=== PATIENT | male | born 1975 | race Caucasian/White ===

== ENCOUNTER → 2020-06-08 09:55 | Outpatient (BNVA) | payer OTHER, SELFPAY | PROVIDERS: PCP Internal Medicine; Referring Provider Internal Medicine; Visit Provider Family Medicine Adult Medicine | DX: M96.1 Postlaminectomy syndrome, not elsewhere classified (principal); M54.16 Radiculopathy, lumbar region; M17.31 Unilateral post-traumatic osteoarthritis, right knee; T14.90XS Injury, unspecified, sequela; Z79.891 Long term (current) use of opiate analgesic | CPT/HCPCS: 99214 ==

== ENCOUNTER → 2020-07-11 10:18 | Outpatient (BNVA) | payer OTHER, SELFPAY | PROVIDERS: PCP Internal Medicine; Visit Provider Family Medicine Adult Medicine | DX: M96.1 Postlaminectomy syndrome, not elsewhere classified (principal); M17.31 Unilateral post-traumatic osteoarthritis, right knee; T14.90XS Injury, unspecified, sequela; X58.XXXS Exposure to other specified factors, sequela; Z79.891 Long term (current) use of opiate analgesic | CPT/HCPCS: 99212 ==

== ENCOUNTER → 2020-08-08 09:45 | Outpatient (BNVA) | payer OTHER, SELFPAY | PROVIDERS: PCP Internal Medicine; Visit Provider Family Medicine Adult Medicine | DX: M96.1 Postlaminectomy syndrome, not elsewhere classified (principal); M17.31 Unilateral post-traumatic osteoarthritis, right knee | CPT/HCPCS: 99212 ==

== ENCOUNTER → 2020-09-07 08:39 | Outpatient (BNVA) | payer OTHER, SELFPAY | PROVIDERS: PCP Internal Medicine; Referring Provider Internal Medicine; Visit Provider Family Medicine Adult Medicine | DX: M96.1 Postlaminectomy syndrome, not elsewhere classified (principal); M17.31 Unilateral post-traumatic osteoarthritis, right knee | CPT/HCPCS: 99212 ==

== ENCOUNTER → 2020-10-06 09:09 | Outpatient (BNVA) | payer OTHER, SELFPAY | PROVIDERS: PCP Internal Medicine; Visit Provider Nurse Practitioner Family | DX: M96.1 Postlaminectomy syndrome, not elsewhere classified (principal); M17.31 Unilateral post-traumatic osteoarthritis, right knee; T14.90XS Injury, unspecified, sequela; M54.16 Radiculopathy, lumbar region; Z79.891 Long term (current) use of opiate analgesic | CPT/HCPCS: 99212 ==

== ENCOUNTER → 2020-11-03 11:08 | Outpatient (BNVA) | payer OTHER, SELFPAY | PROVIDERS: PCP Internal Medicine; Visit Provider Nurse Practitioner Family | DX: M96.1 Postlaminectomy syndrome, not elsewhere classified (principal); M17.31 Unilateral post-traumatic osteoarthritis, right knee; M54.16 Radiculopathy, lumbar region ==

== ENCOUNTER → 2021-02-01 15:51 | Outpatient (BNVA) | payer OTHER, SELFPAY | PROVIDERS: PCP Internal Medicine; Visit Provider Anesthesiology | DX: M96.1 Postlaminectomy syndrome, not elsewhere classified (principal); M17.31 Unilateral post-traumatic osteoarthritis, right knee; M54.16 Radiculopathy, lumbar region; Z88.8 Allergy status to other drugs, medicaments and biological substances; Z79.891 Long term (current) use of opiate analgesic; Z79.899 Other long term (current) drug therapy | CPT/HCPCS: 99212 ==

== ENCOUNTER 2021-03-13 08:17 | Outpatient (REF) | payer OTHER, SELFPAY ==
[2021-03-13 09:02] LABS: MANUAL DIFF FLAG NO
[2021-03-13 09:04] LABS: Basophils Percent Auto 0.4 % (0-2); Eosinophils Absolute Auto 0.2 X10*3/uL (0.0-0.4); Eosinophils Percent Auto 2.5 % (0-4); Hematocrit 44.9 % (42-52); Hemoglobin 15.2 g/dl (14.0-18.0); Imm Gran Abs Auto 0.04 X10*3/uL (0.00-0.03); Imm Gran Pct Auto 0.5 % (0.0-0.4); Lymphocytes Absolute Auto 2.5 X10*3/uL (1.2-4.9); Lymphocytes Percent Auto 34.1 % (20-40); Mean Corpuscular HGB Conc 33.9 g/dl (31.0-36.0); Mean Corpuscular Hemoglobin 31.3 pg (27.0-33.0); Mean Corpuscular Volume 92.6 fL (80-98); Mean Platelet Volume 8.9 fL (9.4-12.4); Monocytes Absolute Auto 0.6 X10*3/uL (0.1-1.2); Neutrophils Percent Auto 54.5 % (45-73); Platelet Count 272 X10*3/uL (160-400); Red Blood Count 4.85 X10*6/uL (4.60-5.80); Red Cell Distribution Width 12.2 % (11.0-16.0); White Blood Count 7.3 X10*3/uL (4.8-10.8)
[2021-03-13 09:27] LABS: Alanine Aminotransferase 33 U/L (0-40); Albumin Level 4.4 g/dL (3.5-5.0); Alkaline Phosphatase 97 U/L (39-117); Anion Gap 13 (12-20); Aspartate Amino Transferase 26 U/L (5-37); Bilirubin Total 0.4 mg/dL (0.0-1.0); Blood Urea Nitrogen 10 mg/dL (9-16); Calcium 9.3 mg/dL (8.4-10.2); Carbon Dioxide 27 mmol/L (22-29); Chloride 105 mmol/L (96-108); Cholesterol 225 mg/dL; Estimated Glomerular Filt Rate > 60; Glucose Random 104 mg/dL (60-115); HDL Cholesterol 44 mg/dL; LDL Cholesterol Calculated 148 mg/dl; Potassium 4.7 mmol/L (3.3-5.1); Sodium 140 mmol/L (135-145); Total Protein 7.1 g/dL (6.5-8.0); Triglycerides 167 mg/dL
[2021-03-13 09:51] LABS: Free T4 (Free Thyroxine) 0.97 ng/dL (0.71-1.85); Thyroid Stimulating Hormone 0.85 uIU/mL (0.32-4.0)
[2021-03-13 10:02] LABS: Folate 10.9 ng/mL (> or = 4.0); Vitamin B12 397 pg/mL (200-900)
== END 2021-03-13 08:18 | disposition home or self-care (01) ==
LOC: HO.LAB 08:17
PROVIDERS: PCP Internal Medicine; Visit Provider Internal Medicine
DX: E78.00 Pure hypercholesterolemia, unspecified (principal)
CPT/HCPCS: 36415; 80053; 80061; 82607; 82746; 84439; 84443; 85025

== ENCOUNTER → 2021-05-02 13:15 | Outpatient (BNVA) | payer OTHER, SELFPAY | PROVIDERS: PCP Internal Medicine; Visit Provider Anesthesiology | DX: M96.1 Postlaminectomy syndrome, not elsewhere classified (principal); M17.31 Unilateral post-traumatic osteoarthritis, right knee; M54.16 Radiculopathy, lumbar region; Z79.899 Other long term (current) drug therapy | CPT/HCPCS: 99212 ==

== ENCOUNTER 2021-08-10 12:03 | Day surgery (SDC) | payer OTHER, SELFPAY ==
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
--- NOTE | ~2021-08-10 | FL_ITS ---
EXAMINATION: XR FLUOROSCOPY WITH IMAGES CLINICAL INFORMATION: Genicular nerve block COMPARISON: Right knee 11/23/2018. TECHNIQUE: Fluoroscopy performed by Dr. Kendall Pacheco. Fluoroscopy time: 0.3 minutes DAP: 1.51 mGycm2 Images: 2 FINDINGS: There are needles positioned along the medial and lateral distal femur and along the medial tibia for genicular nerve block. There is hyperdense material from packing in the distal femur from previous intervention. FL/FL guidance in OR IMPRESSION: [place] positioned around the knee joint for genicular nerve block. There is hyperdense packing material seen within distal femur from previous intervention, unchanged to previous study 06/13/2017.
--- NOTE | 2021-08-10 11:34 | W.PM.OPN ---
Operative Note Operative Note Date of Service: 08/10/21 Narrative: Devin came to the OR after obtaining informed consent. Risks and benefits of the procedure were explained to the patient, all questions were answered He was positioned supine on the OR table with his righ leg elevated on the gell bin. Time was performed - the patient was participating in time out. the anterior surface as well as lateral and medial surface of the knee, lower thigh and upper sheen were prepped with chloroprep and draped with sterile utility drapes. ? C-arm was brought over the operating field and square picture of the femur and tibia bones were delineated on the screen. The points of interests were delineated as the connection of medial border of metaphysis of the tibia with corresponding epiphysis of the medial tibia for the infrapatellar saphenous nerve, the connection of the medial border of metaphisis with medial border of epiphysis of the of the medial border of femur bone for suprapatellar saphenous nerve and the connection of the lateral border of the metaphisis with lateral border of epiphysis of the femur bone for the lateral superior genicular nerve. The projection of the points of interest to the skin were? injected with small amount of lidocain 2%. After that three 50 mm radiofrequency cannulas were driven to the points of interest in AP and lateral views. When the needle on the AP view were at the borders of the bone and on the lateral view they were positioned in the projection of midshafts of the bones the stylletes were remove and radiofrequency probes were inserted into the canullas. The position of the cannulas was verified and injection of the local anesthetic mixture of bupivacain 0.5% and lidocain 2% with trace amount of kenalog was performed into each side port of the canullas. 90 second after energy application was performed at standard settings for the cooled RFA treatment for 2min 45 seconds. Upon completion of the energy application the cannulas were removed and bandaids were applied. The patient tolerated procedure well, he was recovering in PACU, and went home without immediate complications.
[2021-08-10 12:19] VITALS: BMI 23.6
[2021-08-10 12:23] VITALS: BP 156/92; PULSE 84; RESP 16; TEMP 36.9; O2SAT 97
[2021-08-10] MEDS: Lactated Ringers 1,000 ML 100 ML IVCONT (12:33)
--- NOTE | 2021-08-10 14:12 | P.HPSUR_ITS ---
Pre-Procedural Eval Section A Date of Service: 08/10/21 The patient is an INPATIENT: No Changes since office visit: Yes Patient answered all questions The History & Physical has been completed within 30 days and I have reviewed it.: No Section B Chief Complaint: Post-traumatic osteoarthritis of Right knee Details of Present Illness: the same Relevant Family History (Specify if Yes): No Relevant Social History: None Present Medications: see Short Stay Collaborative assessment Medical History: No relevant PMH History of Previous Operations: Relevant previous surgery/procedure and date(s) Allergies: Allergies Allergy/AdvReac Type Severity Reaction Status Date / Time acetaminophen [ACETAMINOPHEN] Allergy Severe HIVES Verified 05/02/21 13:35 hydrocodone [From Vicodin] Allergy Intermediate hives Verified 05/02/21 13:35 gabapentin Allergy Unknown rectal Verified 05/02/21 13:35 bleeding, upset stomach meloxicam Allergy Unknown rectal Verified 05/02/21 13:35 bleed omeprazole Allergy Unknown stomach Verified 05/02/21 13:35 upset Review of Systems Sugical H&P ROS: Negative: Constitution, Cardiovascular, Respiratory, Neuro logical, Psychiatric, Hem-Onc, Allergic/Immunologic, Gastrointestinal, Genitourinary, Musculoskeletal, Integumentary, Endocrine and Eyes/Ears/Nose/Throat Exam Surgical H&P Exam: Normal: HEENT, Normal: Heart, Normal: Lungs, Normal: Extremities, Normal: Abdomen, Normal: Skin and Normal: Neurological Plan Diagnosis/Plan: Unchanged I have reviewed the history and physical and performed a pertinent physical examination on my patient. No changes have occurred unless specified.
--- NOTE | 2021-08-10 14:56 | P.BOP_ITS ---
Brief Operative Note Date of Service: 08/10/21 Pre-op diagnosis: post traumatic osteoarthritis right knee Post-op diagnosis: same Procedure: RFA right knee genicular nerves Surgeon: Kendall Pacheco MD Anesthesia: MAC Was an Neuropsychology Division Chief used for this Procedure?: No Estimated blood loss (mL): 3 Pathology: none sent Condition: stable Disposition: PACU
[2021-08-10 15:03] VITALS: BP 137/96; PULSE 100; RESP 12; TEMP 36.8; O2SAT 98
[2021-08-10 15:18] VITALS: BP 156/103; PULSE 97; RESP 14; O2SAT 100
[2021-08-10 15:33] VITALS: BP 165/93; PULSE 82; RESP 16; O2SAT 100
[2021-08-10 15:48] VITALS: BP 156/90; PULSE 87; RESP 16; TEMP 36.9; O2SAT 100
== END 2021-08-10 16:00 | disposition home or self-care (01) ==
PROVIDERS: PCP Internal Medicine; Visit Provider Anesthesiology
PROC: (CPT 64624; principal; 2021-08-10 14:10)
DX: M17.31 Unilateral post-traumatic osteoarthritis, right knee (principal); G89.29 Other chronic pain; M25.561 Pain in right knee; Z87.828 Personal history of other (healed) physical injury and trauma; Z18.10 Retained metal fragments, unspecified; M96.1 Postlaminectomy syndrome, not elsewhere classified; M54.50 Low back pain, unspecified; M54.16 Radiculopathy, lumbar region; M51.36 Other intervertebral disc degeneration, lumbar region; E55.9 Vitamin D deficiency, unspecified; F17.210 Nicotine dependence, cigarettes, uncomplicated
CPT/HCPCS: 64624; J1100; J2250; J3010; J3300

== ENCOUNTER → 2021-09-12 13:59 | Outpatient (BNVA) | payer OTHER, SELFPAY | PROVIDERS: PCP Internal Medicine; Visit Provider Anesthesiology | DX: M96.1 Postlaminectomy syndrome, not elsewhere classified (principal); M54.16 Radiculopathy, lumbar region; M17.31 Unilateral post-traumatic osteoarthritis, right knee; M19.92 Post-traumatic osteoarthritis, unspecified site; T14.90XS Injury, unspecified, sequela | CPT/HCPCS: Q3014 ==

== ENCOUNTER 2022-05-17 07:54 | Outpatient (REF) | payer OTHER, SELFPAY ==
--- NOTE | 2022-05-17 11:49 | PFT_ITS ---
Forced vital capacity 82%, FEV1 83%. FEV1/FVC ratio is 81. [id number] 79%. MVV 92%. Post bronchodilator therapy, there is no change. Total lung capacity 84%. Residual volume 93%. Diffusion capacity 103% CONCLUSION: Normal pulmonary function test, and there is no evidence of obstructive or restrictive pulmonary disorder. MD LIBIA Chapin/KADENL / [id number]
== END 2022-05-17 07:55 | disposition home or self-care (01) ==
LOC: HO.RESP 07:54
PROVIDERS: PCP Internal Medicine; Visit Provider Internal Medicine
DX: R06.02 Shortness of breath (principal)
CPT/HCPCS: 94060; 94727; 94729

== ENCOUNTER 2022-05-20 07:55 | Outpatient (REF) | payer OTHER, SELFPAY ==
[2022-05-20 11:17] LABS: MANUAL DIFF FLAG NO
[2022-05-20 11:38] LABS: Basophils Percent Auto 0.6 % (0-2); Eosinophils Absolute Auto 0.2 X10*3/uL (0.0-0.4); Eosinophils Percent Auto 2.2 % (0-4); Hemoglobin 15.6 g/dl (14.0-18.0); Imm Gran Abs Auto 0.04 X10*3/uL (0.00-0.03); Imm Gran Pct Auto 0.6 % (0.0-0.4); Lymphocytes Absolute Auto 2.3 X10*3/uL (1.2-4.9); Lymphocytes Percent Auto 34.4 % (20-40); Mean Corpuscular HGB Conc 33.2 g/dl (31.0-36.0); Mean Corpuscular Hemoglobin 31.2 pg (27.0-33.0); Mean Platelet Volume 9.3 fL (9.4-12.4); Monocytes Absolute Auto 0.5 X10*3/uL (0.1-1.2); Neutrophils Absolute Auto 3.7 x10*3/uL (2.0-8.3); Neutrophils Percent Auto 55.2 % (45-73); Platelet Count 291 X10*3/uL (160-400); Red Cell Distribution Width 12.5 % (11.0-16.0); White Blood Count 6.7 X10*3/uL (4.8-10.8)
[2022-05-20 11:53] LABS: Estimated Average Glucose 105 mg/dL; Hemoglobin A1c % 5.3 %
[2022-05-20 12:03] LABS: Alanine Aminotransferase 29 U/L (0-40); Albumin Level 4.4 g/dL (3.5-5.0); Alkaline Phosphatase 75 U/L (39-117); Anion Gap 14 (12-20); Aspartate Amino Transferase 25 U/L (5-37); Bilirubin Total 0.5 mg/dL (0.0-1.0); Blood Urea Nitrogen 11 mg/dL (9-16); Calcium 9.2 mg/dL (8.4-10.2); Carbon Dioxide 26 mmol/L (22-29); Chloride 103 mmol/L (96-108); Cholesterol 264 mg/dL; Estimated Glomerular Filt Rate > 60; Glucose Random 116 mg/dL (60-115); HDL Cholesterol 45 mg/dL; LDL Cholesterol Calculated 170 mg/dl; Potassium 4.5 mmol/L (3.3-5.1); Sodium 138 mmol/L (135-145); Total Protein 7.1 g/dL (6.5-8.0); Triglycerides 248 mg/dL
[2022-05-20 12:05] LABS: Free T4 (Free Thyroxine) 0.96 ng/dL (0.71-1.85); Thyroid Stimulating Hormone 0.47 uIU/mL (0.32-4.0)
[2022-05-20 12:36] LABS: Folate 10.5 ng/mL (> or = 4.0); Vitamin B12 417 pg/mL (200-900)
== END 2022-05-20 07:56 | disposition home or self-care (01) ==
LOC: HO.HMGCLDS 07:55
PROVIDERS: PCP Internal Medicine; Visit Provider Internal Medicine
DX: E78.00 Pure hypercholesterolemia, unspecified (principal); K21.9 Gastro-esophageal reflux disease without esophagitis
CPT/HCPCS: 36415; 80053; 80061; 82607; 82746; 83036; 84439; 84443; 85025

== ENCOUNTER 2022-05-27 09:01 | Outpatient (REF) | payer OTHER, SELFPAY | END 2022-05-27 09:02 | disposition home or self-care (01) | LOC: HO.HOSX 09:01 | PROVIDERS: Visit Provider Orthopaedic Surgery | DX: Z13.89 Encounter for screening for other disorder (principal) ==

== ENCOUNTER 2022-06-06 06:44 | Outpatient (REF) | payer OTHER, SELFPAY ==
[2022-06-06 11:24] LABS: Appearance Urine Clear; Color Urine Yellow; Glucose Urine UA Negative (Negative); Leukocyte Esterase Urine Small (1+) (Negative); Nitrite Urine Negative (Negative); Specific Gravity - Urine >= 1.030 (1.005-1.025); UMIC TRIGGER UA YES; Urine Blood Negative (Negative); Urine Ketones Negative (Negative); Urine Protein Trace mg/dL (Neg-Trace)
[2022-06-06 11:30] LABS: Bacteria Urine None Seen (None Seen); Hyaline Casts Urine 0-2 /LPF (0-2); RBC Urine 0-2 /HPF (0-2); Squamous Epithelial Cell Urine 0-2 /HPF (0-2); WBC Urine 21-50 /HPF (0-5)
== END 2022-06-06 06:45 | disposition home or self-care (01) ==
LOC: HO.HMGCLDS 06:44
PROVIDERS: PCP Internal Medicine; Visit Provider Internal Medicine
DX: E78.00 Pure hypercholesterolemia, unspecified (principal)
CPT/HCPCS: 81001

== ENCOUNTER 2022-06-13 07:00 | Outpatient (RCR) | payer OTHER, SELFPAY ==
--- NOTE | 2022-05-20 07:55 | MHC.PT.EP ---
[facility] [place] [facility] [place] Office [place] Office [address] Xenia Daniels [address] [phone] F: [phone] F: [phone] F: [phone] F: [phone] Physical Therapy Plan of Care Date of Evaluation: Date of Surgery: Diagnosis: pain in left shoulder Assessment: Patient is a 47 year old R handed male who presents with s/s consistent with L shoulder pain. He does not currently work but does help around the house and with his kids. Patient past medical history includes c-spine, knee surgery. He is planning to get a surgery for his back when the time is right as well but is hoping to avoid anything surgical on his shoulder. Current impairments include pain, posture, ROM, strength, activity tolerance and functional mobility. Functional limitations include decreased ability to sleep, lift, carry, push, dress and pull. Patient is motivated with good rehab potential. Skilled PT will address impairments and functional limitations in order to achieve goals. 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 Manual therapy to restore motion and function. Therapeutic exercise to improve strength and flexibility. Neuromuscular re-education for posture and balance. Therapeutic activities to return to functional activities of daily living. Electronically signed by: Domo Khalil, PT Please sign and return to therapist. Thank you for your referral.
--- NOTE | 2022-08-14 10:02 | MHC.PT.DC ---
[facility] [place] Office [place] Office [place] Office [address] Xenia Daniels [address] [phone] F: [phone] F: [phone] F: [phone] F: [phone] Physical Therapy Discharge Report Diagnosis: pain in left shoulder Date of Surgery: Date of Evaluation: 05/20/22 Date of Discharge: 08/14/22 Treatments to Date: 5 Cancellations to Date: No Shows to Date: Discharge Status: Patient Elected to Stop Discharge Summary: Pt held on PT due to pain. 06/13/22: pt notes responding well to ROM but difficulty with push/pull activities. we did initiated isometrics with edu on submax/subpain. pt still notes pushing into painful levels. 06/03/22: we did edu extensively on pain free ROM. issued ROM/stretching HEP to do at home. Holding on strength ex at home at this time. 05/30/22: we have been holding strength progression as pt notes he has been sore with HEP. we will continue to progress in clinic next week. 05/27/22: pt progressed with ROM but held on strength to mitigate soreness felt after last visit. edu in HEP compliance and pain free ex. Patient is a 47 year old R handed male who presents with s/s consistent with L shoulder pain. He does not currently work but does help around the house and with his kids. Patient past medical history includes c-spine, knee surgery. He is planning to get a surgery for his back when the time is right as well but is hoping to avoid anything surgical on his shoulder. Current impairments include pain, posture, ROM, strength, activity tolerance and functional mobility. Functional limitations include decreased ability to sleep, lift, carry, push, dress and pull. Patient is motivated with good rehab potential. Skilled PT will address impairments and functional limitations in order to achieve goals. Electronically signed by: Domo Khalil, PT Please sign and return to therapist. Thank you for your referral.
== END 2022-08-14 10:02 | disposition home or self-care (01) ==
LOC: HO.PTCHIC 07:00
PROVIDERS: PCP Internal Medicine; Visit Provider Internal Medicine
DX: M25.512 Pain in left shoulder (principal)
CPT/HCPCS: 97110; 97140; 97162

== ENCOUNTER 2022-09-12 16:15 | Outpatient (REF) | payer OTHER, SELFPAY ==
--- NOTE | ~2022-09-12 | US_ITS ---
EXAMINATION: US RETROPERITONEAL LIMITED (RENAL ONLY) CLINICAL INFORMATION: Urinary tract infection, site not specified. COMPARISON: Ultrasound abdomen complete 04/24/2017. TECHNIQUE: Real-time imaging of the kidneys. FINDINGS: RIGHT KIDNEY: 9.5 x 5.6 x 5.0 cm (SAG x AP x TRV). The kidney is normal in size, contour, and echogenicity. Renal cortical thickness is normal. No hydronephrosis. A 0.6 cm hyperechoic observation in the lower pole is not significantly changed compared to 2017 and could represent a calcification associated with an immediately adjacent cyst or a nonobstructive calculus. A 1 cm cyst immediately anterior to this hyperechoic focus is larger than when compared to 2017 and aside from the adjacent hyperechoic focus and increased size, it is otherwise simple in appearance. LEFT KIDNEY: 10.8 x 5.8 x 5.6 cm (SAG x AP x TRV). The kidney is normal in size, contour, and echogenicity. Renal cortical thickness is normal. No calculi or focal parenchymal lesions. No hydronephrosis. US/US renal BI IMPRESSION: 1. A 0.6 cm hyperechoic observation in the lower pole of the right kidney is not significantly changed compared to 2017. This could represent a calcification associated with an immediately adjacent cyst or a nonobstructive calculus. 2. A 1 cm cyst immediately anterior to this hyperechoic focus is larger than when compared to 2017. Recommend a follow-up renal ultrasound in 6 months to reassess. 3. No hydronephrosis.
== END 2022-09-12 16:16 | disposition home or self-care (01) ==
LOC: HO.US 16:15
PROVIDERS: Visit Provider Internal Medicine
DX: N39.0 Urinary tract infection, site not specified (principal)
CPT/HCPCS: 76775

== ENCOUNTER 2022-10-02 15:54 | Outpatient (REF) | payer OTHER, SELFPAY | END 2022-10-02 15:55 | disposition home or self-care (01) | LOC: HO.US 15:54 | PROVIDERS: PCP Internal Medicine; Visit Provider Internal Medicine | DX: Z13.89 Encounter for screening for other disorder (principal) ==

== ENCOUNTER 2022-11-13 11:37 | Outpatient (REF) | payer OTHER, SELFPAY ==
--- NOTE | ~2022-11-13 | US_ITS ---
EXAMINATION: US PELVIS LIMITED (BLADDER) CLINICAL INFORMATION: Urinary tract infection, site not specified. COMPARISON: X-ray abdomen KUB 08/20/2017. TECHNIQUE: Real-time imaging of the bladder. FINDINGS: BLADDER: Well distended with minimal trabeculation. No bladder masses or calculi are seen. Bilateral ureteral jets are demonstrated. Prevoid bladder volume is 149 mL. Postvoid bladder volume is 12 mL. On postvoid imaging, the bladder wall appears slightly thickened. Prostate volume is at the upper limits of normal at 25 mL. Calcifications are seen throughout the prostate. US/US bladder IMPRESSION: 1. Minimally trabeculated bladder with thickened bladder wall on postvoid imaging only, probably not significant. 2. Prostate is at the upper limits of normal in size with multiple calcifications throughout.
== END 2022-11-13 11:38 | disposition home or self-care (01) ==
LOC: HO.US 11:37
PROVIDERS: PCP Internal Medicine; Visit Provider Internal Medicine
DX: N39.0 Urinary tract infection, site not specified (principal); R32 Unspecified urinary incontinence
CPT/HCPCS: 76857

== ENCOUNTER 2023-04-28 11:29 | Outpatient (AMB) | payer OTHER, SELFPAY ==
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
[2023-04-28 11:33] VITALS: BP 130/78; PULSE 75; O2SAT 98; BMI 21.9
== END 2023-04-28 12:20 | disposition home or self-care (01) ==
PROVIDERS: Visit Provider Internal Medicine
DX: Z00.00 Encounter for general adult medical examination without abnormal findings (principal); Z72.0 Tobacco use; E78.00 Pure hypercholesterolemia, unspecified; K21.9 Gastro-esophageal reflux disease without esophagitis; Z12.11 Encounter for screening for malignant neoplasm of colon; K25.9 Gastric ulcer, unspecified as acute or chronic, without hemorrhage or perforation; L30.9 Dermatitis, unspecified; H93.19 Tinnitus, unspecified ear
CPT/HCPCS: 99396

== ENCOUNTER 2023-05-20 09:41 | Outpatient (REF) | payer OTHER, SELFPAY ==
[2023-05-20 11:35] LABS: MANUAL DIFF FLAG NO
[2023-05-20 11:49] LABS: Basophils Percent Auto 0.3 % (0-2); Eosinophils Absolute Auto 0.1 X10*3/uL (0.0-0.4); Eosinophils Percent Auto 1.4 % (0-4); Hematocrit 45.6 % (42.0-52.0); Hemoglobin 15.3 g/dl (14.0-18.0); Imm Gran Abs Auto 0.05 X10*3/uL (0.00-0.03); Imm Gran Pct Auto 0.5 % (0.0-0.4); Lymphocytes Absolute Auto 2.1 X10*3/uL (1.2-4.9); Lymphocytes Percent Auto 21.6 % (20-40); Mean Corpuscular HGB Conc 33.6 g/dl (31.0-36.0); Mean Corpuscular Hemoglobin 31.8 pg (27.0-33.0); Mean Corpuscular Volume 94.8 fL (80.0-98.0); Mean Platelet Volume 9.2 fL (9.4-12.4); Monocytes Absolute Auto 0.7 X10*3/uL (0.1-1.2); Monocytes Percent Auto 7.2 % (2-11); Neutrophils Absolute Auto 6.6 x10*3/uL (2.0-8.3); Platelet Count 299 X10*3/uL (160-400); Red Blood Count 4.81 X10*6/uL (4.60-5.80); Red Cell Distribution Width 12.3 % (11.0-16.0); White Blood Count 9.6 X10*3/uL (4.8-10.8)
[2023-05-20 12:07] LABS: Estimated Average Glucose 94 mg/dL; Hemoglobin A1c % 4.9 % (<6.0)
[2023-05-20 13:05] LABS: Alanine Aminotransferase 14 U/L (0-40); Albumin Level 4.3 g/dL (3.5-5.0); Alkaline Phosphatase 85 U/L (39-117); Anion Gap 11 (12-20); Aspartate Amino Transferase 19 U/L (5-37); Bilirubin Total 0.5 mg/dL (0.0-1.0); Blood Urea Nitrogen 11 mg/dL (9-16); Calcium 9.2 mg/dL (8.4-10.2); Carbon Dioxide 28 mmol/L (22-29); Chloride 106 mmol/L (96-108); Cholesterol 223 mg/dL (<200); Estimated Glomerular Filt Rate > 60; Glucose Random 80 mg/dL (60-115); HDL Cholesterol 49 mg/dL (>40); LDL Cholesterol Calculated 156 mg/dL (<100); Potassium 3.8 mmol/L (3.3-5.1); Sodium 141 mmol/L (135-145); Total Protein 7.1 g/dL (6.5-8.0); Triglycerides 92 mg/dL (<150)
[2023-05-20 13:13] LABS: Free T4 (Free Thyroxine) 0.97 ng/dL (0.71-1.85); Thyroid Stimulating Hormone 0.44 uIU/mL (0.32-4.0)
[2023-05-20 13:32] LABS: Vitamin B12 530 pg/mL (200-900)
== END 2023-05-20 09:42 | disposition home or self-care (01) ==
LOC: HO.HMGCLDS 09:41
PROVIDERS: PCP Internal Medicine; Visit Provider Internal Medicine
DX: E78.00 Pure hypercholesterolemia, unspecified (principal); R73.01 Impaired fasting glucose
CPT/HCPCS: 36415; 80053; 80061; 82607; 82746; 83036; 84439; 84443; 85025

== ENCOUNTER 2023-06-23 10:29 | Outpatient (AMB) | payer OTHER, SELFPAY ==
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
[2023-06-23 10:32] VITALS: BP 161/104; PULSE 91; BMI 22.2
== END 2023-06-23 11:52 | disposition home or self-care (01) ==
PROVIDERS: PCP Internal Medicine; Visit Provider Internal Medicine
DX: R19.7 Diarrhea, unspecified (principal); K25.9 Gastric ulcer, unspecified as acute or chronic, without hemorrhage or perforation; Z86.19 Personal history of other infectious and parasitic diseases; R13.10 Dysphagia, unspecified
CPT/HCPCS: 99204

== ENCOUNTER 2023-06-23 10:29 | Outpatient (REF) | payer OTHER, SELFPAY ==
[2023-06-25 12:44] LABS: Immunoglobulin A 169 mg/dL (47-310)
[2023-06-25 16:34] LABS: Transglutaminase IgA <1.0 U/mL
== END 2023-06-23 10:30 | disposition home or self-care (01) ==
LOC: HO.LAB 10:29
PROVIDERS: PCP Internal Medicine; Visit Provider Internal Medicine
DX: R19.7 Diarrhea, unspecified (principal); R10.9 Unspecified abdominal pain; A04.8 Other specified bacterial intestinal infections; K25.9 Gastric ulcer, unspecified as acute or chronic, without hemorrhage or perforation; R13.10 Dysphagia, unspecified
CPT/HCPCS: 36415; 82784; 86140; 86364; 99202

== ENCOUNTER 2024-05-04 10:59 | Outpatient (AMB) | payer OTHER, SELFPAY ==
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
[2024-05-04 11:07] VITALS: BP 122/62; PULSE 72; O2SAT 98; BMI 20.5
== END 2024-05-04 11:50 | disposition home or self-care (01) ==
PROVIDERS: PCP Internal Medicine; Visit Provider Internal Medicine
DX: Z00.00 Encounter for general adult medical examination without abnormal findings (principal); R73.02 Impaired glucose tolerance (oral); Z72.0 Tobacco use; E78.00 Pure hypercholesterolemia, unspecified; K25.9 Gastric ulcer, unspecified as acute or chronic, without hemorrhage or perforation; N28.1 Cyst of kidney, acquired; N20.0 Calculus of kidney; Z12.11 Encounter for screening for malignant neoplasm of colon; L30.9 Dermatitis, unspecified
CPT/HCPCS: 99396

== ENCOUNTER 2024-05-14 13:23 | Outpatient (REF) | payer OTHER, SELFPAY ==
--- NOTE | ~2024-05-14 | US_ITS ---
EXAMINATION: US RETROPERITONEAL LIMITED (RENAL ONLY) CLINICAL INFORMATION: Cyst of kidney, acquired. COMPARISON: Ultrasound bladder 11/13/2022. Renal ultrasound 09/12/2022. X-ray abdomen KUB 08/20/2017 and 07/16/2017. TECHNIQUE: Real-time imaging of the kidneys. FINDINGS: RIGHT KIDNEY: 9.7 x 3.6 x 6.1 cm (SAG x AP x TRV). The kidney is normal in size, contour, and echogenicity. Renal cortical thickness is normal. No renal calculi or hydronephrosis. Likely benign renal cyst measuring 0.8 cm , with mural calcification, previously 1 cm. No follow up imaging is recommended. LEFT KIDNEY: 10.4 x 5.6 x 5.2 cm (SAG x AP x TRV). The kidney is normal in size, contour, and echogenicity. Renal cortical thickness is normal. No calculi or focal parenchymal lesions. No hydronephrosis. US/US renal BI IMPRESSION: Likely benign renal cyst measuring 0.8 cm , with mural calcification, previously 1 cm. No follow up imaging is recommended. Electronically signed by: Patricia Rivera MD 05/24/2024 05:46 PM EDT
== END 2024-05-14 13:24 | disposition home or self-care (01) ==
LOC: HO.US 13:23
PROVIDERS: PCP Internal Medicine; Visit Provider Internal Medicine
DX: N28.1 Cyst of kidney, acquired (principal)
CPT/HCPCS: 76775

== ENCOUNTER 2024-09-17 08:44 | Outpatient (AMB) | payer OTHER, SELFPAY ==
[2024-09-17 09:01] VITALS: BP 120/78; PULSE 90; O2SAT 98; BMI 20.5
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
== END 2024-09-17 09:57 | disposition home or self-care (01) ==
PROVIDERS: PCP Internal Medicine; Visit Provider Physician Assistant
DX: M25.511 Pain in right shoulder (principal)

== ENCOUNTER 2024-09-17 08:44 | Outpatient (REF) | payer OTHER, SELFPAY ==
--- NOTE | ~2024-09-17 | XR_ITS ---
EXAMINATION: XR SHOULDER, RIGHT CLINICAL INFORMATION: M25.511 - Pain in right shoulder COMPARISON: None available. TECHNIQUE: AP external rotation, Grashey, scapular Y, and axillary views of the right shoulder. FINDINGS: The bones and soft tissues are normal. No fracture. Glenohumeral and acromioclavicular alignment is anatomic with normal joint space. No abnormal soft tissue calcifications. XR/XR shoulder RT min 2V IMPRESSION: Normal right shoulder. Electronically signed by: Delroy Llamas MD 09/17/2024 09:39 AM EST
== END 2024-09-17 08:45 | disposition home or self-care (01) ==
LOC: HO.HMGCX 08:44
PROVIDERS: PCP Internal Medicine; Visit Provider Physician Assistant
DX: M25.511 Pain in right shoulder (principal)
CPT/HCPCS: 73030; 99212

== ENCOUNTER → 2024-09-17 09:26 | Outpatient (BNV) | payer OTHER, SELFPAY | PROVIDERS: PCP Internal Medicine; Visit Provider Radiology Diagnostic Radiology | DX: M25.511 Pain in right shoulder (principal) | CPT/HCPCS: 73030 ==

== ENCOUNTER 2024-09-22 08:37 | Outpatient (AMB) | payer OTHER, SELFPAY ==
[2024-09-22 08:46] VITALS: BMI 20.5
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
--- OUTSIDE RECORDS SUMMARY | 2024-09-22 08:55 | XMS_ITS | Clinical Summary ---
Author Organization [facility] Address [address] [place] [address] Care Team Providers Care Securities Settlement Processor Name Role Phone Alexa Sepulveda MD Primary Care Provider Social History Tobacco Use Types Packs/Day Years Used Date Smoking Tobacco: Never Assessed Sex and Gender Information Value Date Recorded Sex Assigned at Not on file Gender Identity Not on file Sexual Orientation Not on file Plan of Treatment Health Maintenance Due Date Last Done Comments Hepatitis B Vaccines (1 of 3 - 3-dose series) 1974 Hepatitis C Screening 1974 COVID-19 Vaccine (#1) 1974 Depression Screening 1986 Preventative Health Evaluation 1992 DTap / Tdap / Td (1 - Tdap) 1993 Colon Cancer Screening (Colonoscopy) 2019 Influenza Vaccine (#1) 2024 Shingrix-Zoster Vaccine (1 of 2) 2024 Pneumococcal Vaccine Aged Out No long er eligible based on patient's age to complete this topic RSV Ped < 20 months Aged Out No longe r eligible based on patient's age to complete this topic Care Teams Securities Settlement Processor Relationship Specialty Start Date End Date Alexa Sepulveda MD [address] [place] [address] [address] [facility] [place] [address] PCP - General Internal Medicine 08/06/18
--- OUTSIDE RECORDS SUMMARY | 2024-09-22 08:55 | XMS_ITS | Clinical Summary ---
Author Organization [facility] Address [address] [place] [address] Care Team Providers Care Building Construction Superintendent Name Role Phone Alexa Sepulveda MD Primary Care Provider [phone] Social History Tobacco Use Types Packs/Day Years Used Date Smoking Tobacco: Never Assessed Sex and Gender Information Value Date Recorded Sex Assigned at Not on file Gender Identity Not on file Sexual Orientation Not on file Plan of Treatment Health Maintenance Due Date Last Done Comments DTaP,Tdap,and Td Vaccines (1 - Tdap) 1993 Hepatitis B Vaccines (1 of 3 - 19+ 3-dose series) 1993 Cholesterol Screening (Lipid Panel) 08/03/2022 Colorectal Cancer Screening: Colonoscopy 08/03/2022 Depression Screening 08/03/2022 HIV Screening 08/03/2022 Hepatitis C Screening 08/03/2022 Social Influencers of Health Screening 08/03/2022 COVID-19 Vaccine ( - 2023-2 5 season) 2024 Influenza Vaccine (#1) 2024 Zoster Vaccines (1 of 2) 2024 HIB Vaccines Aged Out No longer eligi ble based on patient's age to complete this topic HPV Vaccines Aged Out No longer eligi ble based on patient's age to complete this topic Hepatitis A Vaccines Aged Out No long er eligible based on patient's age to complete this topic IPV Vaccines Aged Out No longer eligi ble based on patient's age to complete this topic MMR Vaccines Aged Out No longer eligi ble based on patient's age to complete this topic Meningococcal ACWY Vaccine Aged Out N o longer eligible based on patient's age to complete this topic Pneumococcal Vaccine: Pediat rics (0 to 5 Years) and At-Risk Patients (6 to 64 Years) Aged Out No longer eligible b ased on patient's age to complete this topic RSV Immunization Patients Un manuel 20 months Aged Out No longer eligible b ased on patient's age to complete this topic Varicella Vaccines Aged Out No longer eligible based on patient's age to complete this topic Care Teams Building Construction Superintendent Relationship Specialty Start Date End Date Alexa Sepulveda MD [address] [place] [address] [address] [facility] [place] [address] PCP - General Internal Medicine 08/06/18
== END 2024-09-22 09:19 | disposition home or self-care (01) ==
PROVIDERS: PCP Internal Medicine; Visit Provider Physician Assistant
DX: M75.21 Bicipital tendinitis, right shoulder (principal); S46.001A Unspecified injury of muscle(s) and tendon(s) of the rotator cuff of right shoulder, initial encounter
CPT/HCPCS: 20610; 99203

== ENCOUNTER → 2024-09-22 08:37 | Outpatient (BNVA) | payer OTHER, SELFPAY | PROVIDERS: PCP Internal Medicine; Visit Provider Physician Assistant | DX: M75.21 Bicipital tendinitis, right shoulder (principal); S46.001A Unspecified injury of muscle(s) and tendon(s) of the rotator cuff of right shoulder, initial encounter; M77.8 Other enthesopathies, not elsewhere classified; X58.XXXA Exposure to other specified factors, initial encounter; Y93.9 Activity, unspecified; Y92.9 Unspecified place or not applicable; Y99.9 Unspecified external cause status | CPT/HCPCS: 20610; 99202; J1010; J2003 ==

== ENCOUNTER → 2024-10-15 07:20 | Outpatient (BNV) | payer OTHER, SELFPAY | PROVIDERS: PCP Internal Medicine; Visit Provider Specialist | DX: M71.311 Other bursal cyst, right shoulder (principal) | CPT/HCPCS: 73221 ==

== ENCOUNTER 2024-10-15 07:24 | Outpatient (REF) | payer OTHER, SELFPAY ==
--- NOTE | ~2024-10-15 | MR_ITS ---
CLINICAL HISTORY: M77.8 - Other enthesopathies, not elsewhere classified MR right shoulder without gadolinium Comparison: None Findings: No acute fractures. No pathologic bone lesions. No significant degenerative changes. Type II acromion without downsloping. No effusion. The supraspinatus, infraspinatus, subscapularis, and teres minor tendons are intact. There is multiloculated T2 hyperintense T1 hypointense structure deep to the infraspinatus muscle measuring 3.2 x 2.3 x 1.4 cm extending to the posterior labrum, possible labral cyst. No tears of the long head of biceps tendon. No tears of the glenoid labrum. IMPRESSION: 1. No acute findings. 2. Posterior labral cyst. This document has been electronically signed by: Don Boss MD on 10/16/2024 05:51:29
--- OUTSIDE RECORDS SUMMARY | 2024-10-15 07:27 | XMS_ITS | Clinical Summary ---
Author Organization [facility] Address [address] [place] [address] Care Team Providers Care Service Bar Cashier Name Role Phone Alexa Sepulveda MD Primary Care Provider [phone] Social History Tobacco Use Types Packs/Day Years [...] age to complete this topic Care Teams Service Bar Cashier Relationship Specialty Start Date End Date Alexa Sepulveda MD [address] [place] [address] [address] [facility] [place] [address] PCP - General Internal Medicine 08/06/18
--- OUTSIDE RECORDS SUMMARY | 2024-10-15 07:27 | XMS_ITS | Clinical Summary ---
Author Organization [facility] Address [address] [place] [address] Care Team Providers Care Bulldozer Mechanic Name Role Phone Alexa Sepulveda MD Primary Care Provider [phone] Social History Tobacco Use Types Packs/Day Years Used Date Smoking Tobacco: Never Assessed Sex and Gender Information Value Date Recorded Sex Assigned at Not on file Legal Sex Male 6:14 PM EST Gender Identity Not on file Sexual Orientation [...] Influencers of Health Screening 08/03/2022 COVID-19 Vaccine (1 - 2023-2 5 season) 2024 Influenza Vaccine (#1) 2024 Pneumococcal Vaccine: 50+ Ye ars (1 of 1 - PCV) 2024 Zoster Vaccines (1 of 2) 2024 [...] patient's age to complete this topic Meningococcal B Vacine Aged Out No lo nger eligible based on patient's age to complete [...] age to complete this topic Care Teams Bulldozer Mechanic Relationship Specialty Start Date End Date Alexa Sepulveda MD [address] [place] [address] [address] [facility] [place] [address] PCP - General Internal Medicine 08/06/18
== END 2024-10-15 07:25 | disposition home or self-care (01) ==
LOC: HO.MRI 07:24
PROVIDERS: PCP Internal Medicine; Visit Provider Physician Assistant
DX: M77.8 Other enthesopathies, not elsewhere classified (principal)
CPT/HCPCS: 73221

== ENCOUNTER 2024-11-03 15:03 | Outpatient (AMB) | payer OTHER, SELFPAY ==
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
[2024-11-03 15:07] VITALS: BMI 20.5
--- OUTSIDE RECORDS SUMMARY | 2024-11-03 18:13 | XMS_ITS | Clinical Summary ---
Author Organization [facility] Address [address] [place] [address] Care Team Providers Care Science Tutor Name Role Phone Alexa Sepulveda MD Primary Care Provider [phone] Social History Tobacco Use Types Packs/Day Years [...] age to complete this topic Care Teams Science Tutor Relationship Specialty Start Date End Date Alexa Sepulveda MD [address] [place] [address] [address] [facility] [place] [address] PCP - General Internal Medicine 08/06/18
--- OUTSIDE RECORDS SUMMARY | 2024-11-03 18:13 | XMS_ITS | Clinical Summary ---
Author Organization [facility] Address [address] [place] [address] Care Team Providers Care Metal Punch Press Operator Name Role Phone Alexa Sepulveda MD Primary Care Provider [phone] Social History Tobacco Use Types Packs/Day Years [...] age to complete this topic Care Teams Metal Punch Press Operator Relationship Specialty Start Date End Date Alexa Sepulveda MD [address] [place] [address] [address] [facility] [place] [address] PCP - General Internal Medicine 08/06/18
== END 2024-11-03 15:53 | disposition home or self-care (01) ==
LOC: HO.HOS 15:03
PROVIDERS: PCP Internal Medicine; Visit Provider Physician Assistant
DX: M75.21 Bicipital tendinitis, right shoulder (principal)
CPT/HCPCS: 99213

== ENCOUNTER → 2024-11-03 15:03 | Outpatient (BNVA) | payer OTHER, SELFPAY | PROVIDERS: PCP Internal Medicine; Visit Provider Physician Assistant | DX: M75.21 Bicipital tendinitis, right shoulder (principal); Z71.2 Person consulting for explanation of examination or test findings | CPT/HCPCS: 99212 ==

== ENCOUNTER 2024-11-18 15:34 | Outpatient (AMB) | payer OTHER, SELFPAY ==
[2024-11-18 15:40] VITALS: BP 110/70; PULSE 93; O2SAT 97; BMI 20.7
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
--- OUTSIDE RECORDS SUMMARY | 2024-11-18 17:51 | XMS_ITS | Clinical Summary ---
Author Organization [facility] Address [address] [place] [address] Care Team Providers Care Facilities Officer Name Role Phone Alexa Sepulveda MD Primary Care Provider [phone] Social History Tobacco Use Types Packs/Day Years [...] age to complete this topic Care Teams Facilities Officer Relationship Specialty Start Date End Date Alexa Sepulveda MD [address] [place] [address] [address] [facility] [place] [address] PCP - General Internal Medicine 08/06/18
--- OUTSIDE RECORDS SUMMARY | 2024-11-18 17:51 | XMS_ITS | Clinical Summary ---
Author Organization [facility] Address [address] [place] [address] Care Team Providers Care Net Solutions Architect Name Role Phone Alexa Sepulveda MD Primary Care Provider [phone] Social History Tobacco Use Types Packs/Day Years [...] age to complete this topic Care Teams Net Solutions Architect Relationship Specialty Start Date End Date Alexa Sepulveda MD [address] [place] [address] [address] [facility] [place] [address] PCP - General Internal Medicine 08/06/18
== END 2024-11-18 16:07 | disposition home or self-care (01) ==
LOC: HO.HMCH 15:34
PROVIDERS: PCP Internal Medicine; Visit Provider Physician Assistant Medical
DX: M54.30 Sciatica, unspecified side (principal); M25.561 Pain in right knee; G89.29 Other chronic pain; Z87.828 Personal history of other (healed) physical injury and trauma

== ENCOUNTER → 2024-11-18 15:34 | Outpatient (BNVA) | payer OTHER, SELFPAY | PROVIDERS: PCP Internal Medicine; Visit Provider Physician Assistant Medical | DX: M54.50 Low back pain, unspecified (principal); M25.561 Pain in right knee; G89.29 Other chronic pain; Z87.828 Personal history of other (healed) physical injury and trauma | CPT/HCPCS: 96127; 99212 ==

== ENCOUNTER 2024-11-19 07:26 | Outpatient (REF) | payer OTHER, SELFPAY ==
--- OUTSIDE RECORDS SUMMARY | 2024-11-19 07:29 | XMS_ITS | Clinical Summary ---
Author Organization [facility] Address [address] [place] [address] Care Team Providers Care Cutter Gas Name Role Phone Alexa Sepulveda MD Primary Care Provider [phone] Social History Tobacco Use Types Packs/Day Years [...] age to complete this topic Care Teams Cutter Gas Relationship Specialty Start Date End Date Alexa Sepulveda MD [address] [place] [address] [address] [facility] [place] [address] PCP - General Internal Medicine 08/06/18
--- OUTSIDE RECORDS SUMMARY | 2024-11-19 07:29 | XMS_ITS | Clinical Summary ---
Author Organization [facility] Address [address] [place] [address] Care Team Providers Care Ed Special Education Teacher Name Role Phone Alexa Sepulveda MD Primary Care Provider [phone] Social History Tobacco Use Types Packs/Day Years [...] age to complete this topic Care Teams Ed Special Education Teacher Relationship Specialty Start Date End Date Alexa Sepulveda MD [address] [place] [address] [address] [facility] [place] [address] PCP - General Internal Medicine 08/06/18
[2024-11-19 10:14] LABS: MANUAL DIFF FLAG NO
[2024-11-19 10:26] LABS: Basophils Percent Auto 0.5 % (0-2); Eosinophils Absolute Auto 0.3 X10*3/uL (0.0-0.4); Eosinophils Percent Auto 3.8 % (0-4); Hematocrit 41.3 % (42.0-52.0); Hemoglobin 14.1 g/dl (14.0-18.0); Imm Gran Abs Auto 0.03 X10*3/uL (0.00-0.03); Imm Gran Pct Auto 0.4 % (0.0-0.4); Lymphocytes Absolute Auto 2.4 X10*3/uL (1.2-4.9); Lymphocytes Percent Auto 30.9 % (20-40); Mean Corpuscular HGB Conc 34.1 g/dl (31.0-36.0); Mean Corpuscular Hemoglobin 32.4 pg (27.0-33.0); Mean Corpuscular Volume 94.9 fL (80.0-98.0); Mean Platelet Volume 8.9 fL (9.4-12.4); Monocytes Absolute Auto 0.5 X10*3/uL (0.1-1.2); Monocytes Percent Auto 6.9 % (2-11); Neutrophils Absolute Auto 4.4 x10*3/uL (2.0-8.3); Neutrophils Percent Auto 57.5 % (45-73); Platelet Count 294 X10*3/uL (160-400); Red Blood Count 4.35 X10*6/uL (4.60-5.80); Red Cell Distribution Width 12.3 % (11.0-16.0); White Blood Count 7.6 X10*3/uL (4.8-10.8)
[2024-11-19 10:35] LABS: Estimated Average Glucose 103 mg/dL; Hemoglobin A1C 125.1684 umol/L; Hemoglobin A1c % 5.2 % (<6.0); Total Hemoglobin (HGBA1C) 3743.9716 umol/L
[2024-11-19 11:00] LABS: Alanine Aminotransferase 21 U/L (0-40); Alkaline Phosphatase 75 U/L (39-117); Anion Gap 9 (12-20); Aspartate Amino Transferase 26 U/L (5-37); Bilirubin Total 0.7 mg/dL (0.0-1.0); Blood Urea Nitrogen 12 mg/dL (9-16); Calcium 8.4 mg/dL (8.4-10.2); Carbon Dioxide 25 mmol/L (22-29); Chloride 110 mmol/L (96-108); Cholesterol 197 mg/dL (<200); Estimated Glomerular Filt Rate > 60; Free T4 (Free Thyroxine) 1.16 ng/dL (0.71-1.85); Glucose Random 95 mg/dL (60-115); HDL Cholesterol 46 mg/dL (>40); LDL Cholesterol Calculated 125 mg/dL (<100); Potassium 3.8 mmol/L (3.3-5.1); Sodium 140 mmol/L (135-145); Thyroid Stimulating Hormone 0.42 uIU/mL (0.32-4.0); Total Protein 6.8 g/dL (6.5-8.0); Triglycerides 132 mg/dL (<150)
[2024-11-19 11:03] LABS: Folate 12.5 ng/mL (> or = 4.0); Prostate Specific Antigen Scr 0.55 ng/mL (<0.05-4.0); Vitamin B12 407 pg/mL (200-900)
== END 2024-11-19 07:27 | disposition home or self-care (01) ==
LOC: HO.HMGCLDS 07:26
PROVIDERS: PCP Internal Medicine; Visit Provider Internal Medicine
DX: Z12.5 Encounter for screening for malignant neoplasm of prostate (principal); E78.00 Pure hypercholesterolemia, unspecified; R73.02 Impaired glucose tolerance (oral)
CPT/HCPCS: 36415; 80053; 80061; 82607; 82746; 83036; 84153; 84439; 84443; 85025

== ENCOUNTER 2024-11-23 06:00 | Outpatient (RCR) | payer OTHER, SELFPAY ==
--- NOTE | 2024-11-17 08:16 | MHC.PT.EP ---
[facility] [place] [facility] [place] Office [place] Office [address] [phone] F: [phone] F: [phone] F: [phone] F: [phone] Physical Therapy Plan of Care Date of Evaluation: 11/17/24 Date of Surgery: Diagnosis: bicipital tendinitis, right shoulder. Assessment: Patient is a 49 year old R handed male who presents with s/s consistent with R shoulder pain, R shoulder bicipital tendonitis. 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 Patient past medical history includes cervical surgery, back pain, and complex injury history. Current impairments include pain, posture, ROM, strength, activity tolerance and functional mobility. Functional limitations include decreased ability to reach, lift, carry, push, pull, sleep and dress. Patient is motivated with good rehab potential. Skilled PT will address impairments and functional limitations in order to achieve goals. Frequency and Duration: The patient will be seen 2x/week for 5 weeks Short Term Goals: I with HEP - 2 weeks AROM flexion to 140 pain free - 3 weeks ER 65 AROM - 3 weeks Eliminate painful episodes - 3 weeks Video Control Operator Goals: Strength 4+/5 grossly - 5 weeks SPADI 40/130 - 5 weeks Max pain with daily activities 3/10 - 5 weeks TTP absent - 5 weeks Treatment Plan: Modalities to reduce pain, spasms and effusion. Manual therapy to restore motion and function. Therapeutic exercise to improve strength and flexibility. Neuromuscular re-education for posture and balance. Therapeutic activities to return to functional activities of daily living. Electronically signed by: Domo Khalil, PT Please sign and return to therapist. Thank you for your referral.
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
== END 2025-03-11 08:13 | disposition home or self-care (01) ==
LOC: HO.PTCHIC 06:00
PROVIDERS: PCP Internal Medicine; Visit Provider Physician Assistant
DX: M75.21 Bicipital tendinitis, right shoulder (principal)
CPT/HCPCS: 97110; 97162

== ENCOUNTER 2024-11-25 16:02 | Outpatient (AMB) | payer OTHER, SELFPAY ==
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
[2024-11-25 16:13] VITALS: BP 112/70; PULSE 92; TEMP 36.9; O2SAT 97; BMI 20.7
== END 2024-11-25 16:29 | disposition home or self-care (01) ==
LOC: HO.HMCH 16:03
PROVIDERS: PCP Internal Medicine; Visit Provider Physician Assistant Medical
DX: M54.16 Radiculopathy, lumbar region (principal); M17.31 Unilateral post-traumatic osteoarthritis, right knee; M54.30 Sciatica, unspecified side; M25.561 Pain in right knee; G89.29 Other chronic pain; Z87.828 Personal history of other (healed) physical injury and trauma

== ENCOUNTER → 2024-11-25 16:02 | Outpatient (BNVA) | payer OTHER, SELFPAY | PROVIDERS: PCP Internal Medicine; Visit Provider Physician Assistant Medical | DX: M54.16 Radiculopathy, lumbar region (principal); M17.31 Unilateral post-traumatic osteoarthritis, right knee; M54.30 Sciatica, unspecified side; M25.561 Pain in right knee; G89.29 Other chronic pain; Z87.828 Personal history of other (healed) physical injury and trauma | CPT/HCPCS: 96127; 99212 ==

== ENCOUNTER 2024-12-14 13:23 | Outpatient (AMB) | payer OTHER, SELFPAY ==
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
[2024-12-14 13:37] VITALS: BMI 20.7
--- OUTSIDE RECORDS SUMMARY | 2024-12-14 16:19 | XMS_ITS | Clinical Summary ---
Author Organization [facility] Address [address] [place] [address] Care Team Providers Care Painter Set Name Role Phone lAexa Sepulveda MD Primary Care Provider Social History [...] Vaccine (1 - 2023-2 5 season) 2024 Pneumococcal Vaccine: 50+ Ye ars (1 of 1 - PCV) 2024 Zoster Vaccines (1 of 2) 2024 Influenza Vaccine (Season Ended) 2025 HIB Vaccines Aged Out No longer eligi [...] age to complete this topic Meningococcal B Vaccine Aged Out No l onger eligible based on patient's age to complete [...] age to complete this topic Care Teams Painter Set Relationship Specialty Start Date End Date Alexa Sepulveda MD [address] [place] [address] [address] [facility] [place] [address] PCP - General Internal Medicine 08/06/18
--- OUTSIDE RECORDS SUMMARY | 2024-12-14 16:19 | XMS_ITS | Clinical Summary ---
Author Organization [facility] Address [address] [place] [address] Care Team Providers Care Program Evaluator Name Role Phone Alexa Sepulveda MD Primary Care Provider [phone] Social History Tobacco Use Types Packs/Day Years [...] age to complete this topic Care Teams Program Evaluator Relationship Specialty Start Date End Date Alexa Sepulveda MD [address] [place] [address] [address] [facility] [place] [address] PCP - General Internal Medicine 08/06/18
== END 2024-12-14 14:31 | disposition home or self-care (01) ==
LOC: HO.HOS 13:23
PROVIDERS: PCP Internal Medicine; Visit Provider Physical Medicine & Rehabilitation
DX: M25.511 Pain in right shoulder (principal)
CPT/HCPCS: 99203

== ENCOUNTER → 2024-12-14 13:23 | Outpatient (BNVA) | payer OTHER, SELFPAY | PROVIDERS: PCP Internal Medicine; Visit Provider Physical Medicine & Rehabilitation | DX: M25.511 Pain in right shoulder (principal) | CPT/HCPCS: 99202 ==

== ENCOUNTER 2024-12-28 07:06 | Emergency (ER) | payer OTHER, SELFPAY ==
[2024-12-28 07:10] VITALS: BP 133/92; PULSE 98; RESP 20; TEMP 37.1; O2SAT 99; BMI 20.6
--- OUTSIDE RECORDS SUMMARY | 2024-12-28 08:04 | XMS_ITS | Clinical Summary ---
Author Organization [facility] Address [address] [place] [address] Care Team Providers Care Child Development Instructor Name Role Phone Alexa Sepulveda MD Primary Care Provider [phone] Social History Tobacco Use Types Packs/Day Years [...] age to complete this topic Care Teams Child Development Instructor Relationship Specialty Start Date End Date Alexa Sepulveda MD [address] [place] [address] [address] [facility] [place] [address] PCP - General Internal Medicine 08/06/18
--- OUTSIDE RECORDS SUMMARY | 2024-12-28 08:04 | XMS_ITS | Clinical Summary ---
Author Organization [facility] Address [address] [place] [address] Care Team Providers Care Percussion Instrument Tuner Name Role Phone Alexa Sepulveda MD Primary Care Provider [phone] Social History Tobacco Use Types Packs/Day Years [...] age to complete this topic Care Teams Percussion Instrument Tuner Relationship Specialty Start Date End Date Alexa Sepulveda MD [address] [place] [address] [address] [facility] [place] [address] PCP - General Internal Medicine 08/06/18
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
[2024-12-28 08:53] VITALS: BP 146/80; PULSE 78; RESP 15; TEMP 36.8; O2SAT 98
[2024-12-28 08:57] VITALS: BP 146/80; PULSE 78; RESP 15; TEMP 36.8; O2SAT 98
== END 2024-12-28 08:58 | disposition home or self-care (01) ==
PROVIDERS: Emergency Provider Emergency Medicine; PCP Internal Medicine
DX: M25.511 Pain in right shoulder (principal)
CPT/HCPCS: 99282; 99283

== ENCOUNTER 2025-01-10 12:13 | Outpatient (AMB) | payer OTHER, SELFPAY ==
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
--- OUTSIDE RECORDS SUMMARY | 2025-01-10 12:43 | XMS_ITS | Clinical Summary ---
Author Organization [facility] Address [address] [place] [address] Care Team Providers Care Electric Razor Mechanic Name Role Phone Alexa Sepulveda MD Primary Care Provider [phone] Social History Tobacco Use Types Packs/Day Years [...] age to complete this topic Care Teams Electric Razor Mechanic Relationship Specialty Start Date End Date Alexa Sepulveda MD [address] [place] [address] Dr [address] [facility] [place] [address] PCP - General Internal Medicine 08/06/18
--- OUTSIDE RECORDS SUMMARY | 2025-01-10 12:43 | XMS_ITS | Clinical Summary ---
Author Organization [facility] Address [address] [place] [address] Care Team Providers Care Human Resources Benefits Assistant Name Role Phone Alexa Sepulveda MD Primary Care Provider [phone] Social History Tobacco Use Types Packs/Day Years [...] age to complete this topic Care Teams Human Resources Benefits Assistant Relationship Specialty Start Date End Date Alexa Sepulveda MD [address] [place] [address] [address] [facility] [place] [address] PCP - General Internal Medicine 08/06/18
== END 2025-01-10 12:57 | disposition home or self-care (01) ==
LOC: HO.HOS 12:14
PROVIDERS: PCP Internal Medicine; Visit Provider Orthopaedic Surgery
DX: M24.811 Other specific joint derangements of right shoulder, not elsewhere classified (principal)
CPT/HCPCS: 99213

== ENCOUNTER → 2025-01-10 12:13 | Outpatient (BNVA) | payer OTHER, SELFPAY | PROVIDERS: PCP Internal Medicine; Visit Provider Orthopaedic Surgery | DX: M24.811 Other specific joint derangements of right shoulder, not elsewhere classified (principal) | CPT/HCPCS: 99212 ==

== ENCOUNTER → 2025-01-22 19:05 | Outpatient (BNV) | payer OTHER, SELFPAY | PROVIDERS: PCP Internal Medicine; Visit Provider Radiology Diagnostic Radiology | DX: M67.411 Ganglion, right shoulder (principal) | CPT/HCPCS: 73221 ==

== ENCOUNTER 2025-01-22 19:07 | Outpatient (REF) | payer OTHER, SELFPAY ==
--- NOTE | ~2025-01-22 | MR_ITS ---
CLINICAL HISTORY: M24.811 - Other specific joint derangements of right shoulder, not elsew... MR right shoulder without gadolinium Comparison: MR - MR SHOULDER RT WO CON - 10/15/24 07:30 EST Findings: No acute fractures. No pathologic bone lesions. No significant degenerative changes. Type II acromion. Trace fluid is seen within the subacromial subdeltoid bursa similar to the prior exam. No rotator cuff tears. The long head of biceps is intact. No tears of the glenoid labrum. There are large ganglion cysts in the spinoglenoid notch mildly increased in size relative to the prior exam. IMPRESSION: 1. 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 2. Small amount of fluid within the subacromial subdeltoid bursa unchanged. No definite rotator cuff tear noted. This document has been electronically signed by: Suleiman Hardy MD on 01/25/2025 11:03:09
== END 2025-01-22 19:08 | disposition home or self-care (01) ==
LOC: HO.MRI 19:07
PROVIDERS: PCP Internal Medicine; Visit Provider Orthopaedic Surgery
DX: M24.811 Other specific joint derangements of right shoulder, not elsewhere classified (principal)
CPT/HCPCS: 73221

== ENCOUNTER 2025-02-14 15:28 | Outpatient (AMB) | payer OTHER, SELFPAY ==
[2025-02-14 15:30] VITALS: BP 110/66; PULSE 73; O2SAT 97; BMI 20.9
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
--- OUTSIDE RECORDS SUMMARY | 2025-02-14 17:24 | XMS_ITS | Clinical Summary ---
Author Organization [facility] Address [address] [place] [address] Care Team Providers Care Lead Blender Name Role Phone Alexa Sepulveda MD Primary Care Provider [phone] Social History Tobacco Use Types Packs/Day Years [...] age to complete this topic Care Teams Lead Blender Relationship Specialty Start Date End Date Alexa Sepulveda MD [address] [place] [address] [address] [facility] [place] [address] PCP - General Internal Medicine 08/06/18
== END 2025-02-14 15:59 | disposition home or self-care (01) ==
LOC: HO.HMCH 15:28
PROVIDERS: PCP Internal Medicine; Visit Provider Internal Medicine
DX: M24.811 Other specific joint derangements of right shoulder, not elsewhere classified (principal); Z12.11 Encounter for screening for malignant neoplasm of colon; L30.9 Dermatitis, unspecified; R41.3 Other amnesia

== ENCOUNTER → 2025-02-14 15:28 | Outpatient (BNVA) | payer OTHER, SELFPAY | PROVIDERS: PCP Internal Medicine; Visit Provider Internal Medicine | DX: K21.9 Gastro-esophageal reflux disease without esophagitis (principal); M24.811 Other specific joint derangements of right shoulder, not elsewhere classified; L30.9 Dermatitis, unspecified; R41.3 Other amnesia; F17.210 Nicotine dependence, cigarettes, uncomplicated | CPT/HCPCS: 96127; 99212 ==

== ENCOUNTER → 2025-03-02 13:46 | Outpatient (AMB) | payer OTHER, SELFPAY ==
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
--- OUTSIDE RECORDS SUMMARY | 2025-03-02 14:19 | XMS_ITS | Clinical Summary ---
Author Organization [facility] Address [address] [place] [address] Care Team Providers Care Slat Basket Maker Helper Machine Name Role Phone Alexa Sepulveda MD Primary Care Provider [phone] Social History Tobacco Use Types Packs/Day Years [...] Tdap) 1993 Colon Cancer Screening (Colonoscopy) 2019 Shingrix-Zoster Vaccine (1 of 2) 2024 Influenza Vaccine (Season Ended) 2025 Pneumococcal Vaccine Aged Out No long er eligible based on patient's age to complete this topic RSV Ped < 20 months Aged Out No longe r eligible based on patient's age to complete this topic Care Teams Slat Basket Maker Helper Machine Relationship Specialty Start Date End Date Alexa Sepulveda MD [address] [place] [address] [address] [facility] [place] [address] PCP - General Internal Medicine 08/06/18
--- OUTSIDE RECORDS SUMMARY | 2025-03-02 14:19 | XMS_ITS | Clinical Summary ---
Author Organization [facility] Address [address] [place] [address] Care Team Providers Care Art Sales Consultant Name Role Phone Alexa Sepulveda MD Primary Care Provider [phone] Social History Tobacco Use Types Packs/Day Years [...] age to complete this topic Care Teams Art Sales Consultant Relationship Specialty Start Date End Date Alexa Sepulveda MD [address] [place] [address] [address] [facility] [place] [address] PCP - General Internal Medicine 08/06/18
== END ==
LOC: HO.HGI 13:46
PROVIDERS: PCP Internal Medicine; Visit Provider Internal Medicine
DX: K25.9 Gastric ulcer, unspecified as acute or chronic, without hemorrhage or perforation (principal); A04.8 Other specified bacterial intestinal infections; B96.81 Helicobacter pylori [H. pylori] as the cause of diseases classified elsewhere; R13.10 Dysphagia, unspecified
CPT/HCPCS: 99214

== ENCOUNTER 2025-03-10 07:31 | Outpatient (REF) | payer OTHER, SELFPAY ==
--- OUTSIDE RECORDS SUMMARY | 2025-03-10 07:34 | XMS_ITS | Clinical Summary ---
Author Organization [facility] Address [address] [place] [address] Care Team Providers Care Grab Operator Name Role Phone Alexa Sepulveda MD Primary Care Provider [phone] Social History Tobacco Use Types Packs/Day Years [...] Vaccine (1 of 2) 2024 Influenza Vaccine (#1) 2025 Pneumococcal Vaccine Aged Out No long er eligible based on patient's age to complete this topic RSV Ped < 20 months Aged Out No longe r eligible based on patient's age to complete this topic Care Teams Grab Operator Relationship Specialty Start Date End Date Alexa Sepulveda MD [address] [place] [address] [address] [facility] [place] [address] PCP - General Internal Medicine 08/06/18
--- OUTSIDE RECORDS SUMMARY | 2025-03-10 07:34 | XMS_ITS | Clinical Summary ---
Author Organization [facility] Address [address] [place] [address] Care Team Providers Care Merchandise Team Manager Name Role Phone Alexa Sepulveda MD Primary Care Provider [phone] Social History Tobacco Use Types Packs/Day Years [...] Vaccines (1 of 2) 2024 Influenza Vaccine (#1) 2025 HIB Vaccines Aged Out No longer [...] 5 Years) and At-Risk Patients (6 to 49 Years) Aged Out No longer eligible b ased on patient's age to complete this topic RSV Immunization Patients Un manuel 20 months Aged Out No longer eligible b ased on patient's age to complete this topic Varicella Vaccines Aged Out No longer eligible based on patient's age to complete this topic Care Teams Merchandise Team Manager Relationship Specialty Start Date End Date Alexa Sepulveda MD [address] [place] [address] [address] [facility] [place] [address] PCP - General Internal Medicine 08/06/18
[2025-03-10 10:57] LABS: Hematocrit 40.8 % (42.0-52.0); Hemoglobin 13.8 g/dl (14.0-18.0); Mean Corpuscular HGB Conc 33.8 g/dl (31.0-36.0); Mean Corpuscular Hemoglobin 32.2 pg (27.0-33.0); Mean Corpuscular Volume 95.1 fL (80.0-98.0); NRBC Abs Auto 0.000 X10*3/uL (0.0-0.012); NRBC Pct Auto 0.0 /100WBC (0.0-0.2); Platelet Count 297 X10*3/uL (160-400); Red Blood Count 4.29 X10*6/uL (4.60-5.80); White Blood Count 6.9 X10*3/uL (4.8-10.8)
== END 2025-03-10 07:32 | disposition home or self-care (01) ==
LOC: HO.HMGCLDS 07:31
PROVIDERS: PCP Internal Medicine; Visit Provider Internal Medicine
DX: K92.2 Gastrointestinal hemorrhage, unspecified (principal)
CPT/HCPCS: 36415; 85027

== ENCOUNTER 2025-03-28 08:47 | Outpatient (AMB) | payer OTHER, SELFPAY ==
[2025-03-28 08:50] VITALS: BMI 20.8
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
--- OUTSIDE RECORDS SUMMARY | 2025-03-28 09:18 | XMS_ITS | Clinical Summary ---
Author Organization [facility] Address [address] [place] [address] Care Team Providers Care Director Vaccine Name Role Phone Alexa Sepulveda MD Primary Care Provider [phone] Social History Tobacco Use Types Packs/Day Years [...] age to complete this topic Care Teams Director Vaccine Relationship Specialty Start Date End Date Alexa Sepulveda MD [address] [place] [address] [address] [facility] [place] [address] PCP - General Internal Medicine 08/06/18
--- OUTSIDE RECORDS SUMMARY | 2025-03-28 09:18 | XMS_ITS | Clinical Summary ---
Author Organization [facility] Address [address] [place] [address] Care Team Providers Care Drug Abuse Technician Name Role Phone Alexa Sepulveda MD Primary Care Provider [phone] Social History Tobacco Use Types Packs/Day Years [...] Panel) 08/03/2022 Colorectal Cancer Screening: Colonoscopy 08/03/2022 HIV Screening 08/03/2022 Hepatitis C Screening 08/03/2022 Social Influencers of Health Screening 08/03/2022 COVID-19 Vaccine (1 - 2023-2 5 season) 2024 Pneumococcal Vaccine: 50+ Ye ars (1 of 1 - PCV) 2024 Zoster Vaccines (1 of 2) 2024 Depression Screening 09/01/2024 Influenza Vaccine (#1) 2025 HIB Vaccines Aged [...] age to complete this topic Care Teams Drug Abuse Technician Relationship Specialty Start Date End Date Alexa Sepulveda MD [address] [place] [address] [address] [facility] [place] [address] PCP - General Internal Medicine 08/06/18
--- OUTSIDE RECORDS SUMMARY | 2025-03-28 09:18 | XMS_ITS | Clinical Summary ---
Author Organization [facility] Address [address] [place] [address] Phone Care Team Providers Care Iv Therapy Nurse Name Role Phone Alexa Sepulveda MD Primary Care Provider [phone] Allergies Active Allergy Reactions Criticality Noted Date Comments Acetaminophen Hives 06/20/2017 Medications No known medications Active Problems No known active problems Social History Tobacco Use Types Packs/Day Years Used Date Smoking Tobacco: Some Days Education Answer Date Recorded Are you interested in more education? Not on chris e 12/27/2022 Are you concerned about learning? Not on file 12/27/2022 No 12/27/2022 No 12/27/2022 Digital Access Answer Date Recorded No 01/25/2023 No 01/25/2023 No 01/25/2023 Reliable internet access at home? Not on file 01/25/2023 Device with a working camera? Not on file Comments Unknown Sex and Gender Information Value Date Recorded Sex Assigned at Not on file Legal Sex Female 10:31 AM EDT Gender Identity Not on file Sexual Orientation Not on file Plan of Treatment Health Maintenance Due Date Last Done Comments LIPID PANEL 1974 DEPRESSION SCREENING 1986 SMOKING Hx and SMOKELESS TOB ACCO SCREENING 1987 HEPATITIS C SCREENING 1992 HIV ONE-TIME SCREENING (18-6 5 YEARS) 1992 PAP SMEAR 1995 MAMMOGRAM 2014 PNEUMOCOCCAL VACCINES (50+ y ears) (2 of 2 - PCV) 03/05/2019 03/05/2018 COLOGUARD 2019 COLONOSCOPY 2019 COLORECTAL CANCER SCREENING 2019 FIT TEST 2019 FOBT 2019 SIGMOIDOSCOPY 2019 VIRTUAL COLONOSCOPY 2019 COVID-19 VACCINE (1 - 2023-2 5 season) 2024 ZOSTER VACCINES (1 of 2) 2024 Adult Td,Tdap Booster 03/05/2028 03/05/2018 HEPATITIS A VACCINES Aged Out No long er eligible based on patient's age to complete this topic HIB VACCINES Aged Out No longer eligi ble based on patient's age to complete this topic MENINGOCOCCAL VACCINES (ACWY) Aged Out No longer eligible based on patient's age to complete this topic MENINGOCOCCAL VACCINES (B) Aged Out N o longer eligible based on patient's age to complete this topic Medical Devices Not on file Insurance CARE MEDICARE REPLACEMENT ALPHONSE NAIR [facility] CARE MEDICARE REPLACEMENT ALPH[employer]SE NAIR [id number] CARE MEDICARE REPLACEMENT CARE MEDICARE REPLACEMENT CARE MEDICARE REPLACEMENT CARE MEDICARE REPLACEMENT [employer] NAIR [id number] Care Teams Iv Therapy Nurse Relationship Specialty Start Date End Date Alexa Sepulveda MD [address] [place] [address] [place] [id number] PCP - General Internal Medicine 05/27/17 Additional Source Comments The information contained in this document represents components of the legal health record. It is not the complete legal health record.[facility]
== END 2025-03-28 09:27 | disposition home or self-care (01) ==
LOC: HO.HOS 08:49
PROVIDERS: PCP Internal Medicine; Visit Provider Orthopaedic Surgery
DX: G56.80 Other specified mononeuropathies of unspecified upper limb (principal)
CPT/HCPCS: 99214

== ENCOUNTER → 2025-03-28 08:47 | Outpatient (BNVA) | payer OTHER, SELFPAY | PROVIDERS: PCP Internal Medicine; Visit Provider Orthopaedic Surgery | DX: Z71.2 Person consulting for explanation of examination or test findings (principal); G56.81 Other specified mononeuropathies of right upper limb | CPT/HCPCS: 99212 ==

== ENCOUNTER 2025-04-01 08:50 | Outpatient (AMB) | payer OTHER, SELFPAY ==
--- NOTE | 2025-04-01 08:58 | AM.OFFVISNUR ---
Intake Visit Reasons: H pylori breath test Allergies acetaminophen (ACETAMINOPHEN) Allergy (Intermediate, Verified 03/28/25 08:53) HIVES gabapentin Allergy (Intermediate, Verified 03/28/25 08:53) rectal bleeding, upset stomach hydrocodone (From Vicodin) Allergy (Intermediate, Verified 03/28/25 08:53) hives meloxicam Allergy (Intermediate, Verified 03/28/25 08:53) rectal bleed omeprazole Adverse Reaction (Intermediate, Verified 03/28/25 08:53) stomach upset Nursing Note Patient presents for collection of H Pylori breath test. Patient has been fasting for 1 hour (nothing to eat, drink, no chewing gum or smoking) has not taken any antacid medication for at least 2 weeks and has no allergies to artificial sweeteners.?? Assessment & Plan Assessment & Plan (1) GERD (gastroesophageal reflux disease): Code(s): K21.9 - Gastro-esophageal reflux disease without esophagitis Category: Medical (2) H. pylori infection: Code(s): A04.8 - Other specified bacterial intestinal infections Category: Medical (3) Dysphagia: Code(s): R13.10 - Dysphagia, unspecified Category: Medical (4) Gastric ulcer: Code(s): K25.9 - Gastric ulcer, unspecified as acute or chronic, without hemorrhage or perforation Category: Medical Plan Patient presents for collection of H Pylori breath test. Patient has been fasting for 1 hour (nothing to eat, drink, no chewing gum or smoking) has not taken any antacid medication for at least 2 weeks and has no allergies to artificial sweeteners.???This test checks for an overgrowth of bacteria in your stomach. We all have bacteria but some may have more than others. It is treatable. if the test comes back negative there is nothing else to do. If the test result is positive we will treat you with 2 antibiotics and a medication to decrease the acid in your stomach (PPI) for 2 weeks. Two weeks after you have completed the treatment we will retest you to make sure the overgrowth has resolved. Orders: Orders H Pylori Breath Test Today Patient Instructions: Process for specimen collection and reason for testing was explained to the patient. Specimen collection. Patient instructed to take a deep breath and then exhale into the blue bag, filling it up as much as possible. Patient instructed to drink a mixture of water and the artificial sweetener with a straw. A 15 minute wait period was observed. Patient instructed to take a deep breath and then exhale into the pink bag, filling it up as much as possible.?? Coding Level of Care Code Established Pt Est Pt Level 1 (26223) Patient Type Established Medical Decision Making Straight Forward Diagnoses GERD (gastroesophageal reflux disease) K21.9 H. pylori infection A04.8 Dysphagia R13.10 Gastric ulcer K25.9
--- OUTSIDE RECORDS SUMMARY | 2025-04-01 09:02 | XMS_ITS | Clinical Summary ---
Author Organization [facility] Address [address] [place] [address] Phone Care Team Providers Care Signal Supervisor Name Role Phone Alexa Sepulveda MD Primary Care Provider [phone] Allergies Active Allergy Reactions Criticality Noted Date [...] file Insurance CARE MEDICARE REPLACEMENT [employer] [facility] CARE MEDICARE REPLACEMENT [employer] [place]IR [id number] CARE MEDICARE REPLACEMENT CARE MEDICARE REPLACEMENT CARE MEDICARE REPLACEMENT CARE MEDICARE REPLACEMENT [employer] [place]IR [id number] Care Teams Signal Supervisor Relationship Specialty Start Date End Date Alexa Sepulveda MD [address] [place] [address] [place] [phone] PCP - General Internal Medicine 05/27/17 Additional Source Comments The information contained in this document represents components of the legal health record. It is not the complete legal health record.[facility]
--- OUTSIDE RECORDS SUMMARY | 2025-04-01 09:02 | XMS_ITS | Clinical Summary ---
Author Organization [facility] Address [address] [place] [address] Care Team Providers Care Copy Center Specialist Name Role Phone Alexa Sepulveda MD Primary Care Provider [phone] Social History Tobacco Use Types Packs/Day Years [...] age to complete this topic Care Teams Copy Center Specialist Relationship Specialty Start Date End Date Alexa Sepulveda MD [address] [place] [address] [address] [facility] [place] [address] PCP - General Internal Medicine 08/06/18
--- OUTSIDE RECORDS SUMMARY | 2025-04-01 09:02 | XMS_ITS | Clinical Summary ---
Author Organization [facility] Address [address] [place] [address] Care Team Providers Care Irrigation Equipment Mechanic Name Role Phone Alexa Sepulveda MD [...] age to complete this topic Care Teams Irrigation Equipment Mechanic Relationship Specialty Start Date End Date Alexa Sepulveda MD [address] [place] [address] [address] [facility] [place] [address] PCP - General Internal Medicine 08/06/18
== END 2025-04-01 08:59 | disposition home or self-care (01) ==
LOC: HO.HGI 08:51
PROVIDERS: PCP Internal Medicine; Visit Provider Internal Medicine
DX: K21.9 Gastro-esophageal reflux disease without esophagitis (principal); A04.8 Other specified bacterial intestinal infections; R13.10 Dysphagia, unspecified; K25.9 Gastric ulcer, unspecified as acute or chronic, without hemorrhage or perforation

== ENCOUNTER → 2025-04-01 08:50 | Outpatient (BNVA) | payer OTHER, SELFPAY | PROVIDERS: PCP Internal Medicine; Visit Provider Internal Medicine | DX: K21.9 Gastro-esophageal reflux disease without esophagitis (principal); R13.10 Dysphagia, unspecified; A04.8 Other specified bacterial intestinal infections; K25.9 Gastric ulcer, unspecified as acute or chronic, without hemorrhage or perforation; Z01.818 Encounter for other preprocedural examination; S46.001D Unspecified injury of muscle(s) and tendon(s) of the rotator cuff of right shoulder, subsequent encounter; E78.00 Pure hypercholesterolemia, unspecified; Z72.0 Tobacco use | CPT/HCPCS: 99211; 99212 ==

== ENCOUNTER 2025-04-01 09:21 | Outpatient (REF) | payer OTHER, SELFPAY ==
--- OUTSIDE RECORDS SUMMARY | 2025-04-04 11:52 | XMS_ITS | Clinical Summary ---
Author Organization [facility] Address [address] [place] [address] Care Team Providers Care Director Medicaid Name Role Phone Alexa Sepulveda MD Primary Care Provider [phone] Social History Tobacco Use Types Packs/Day Years [...] to complete this topic Care Teams Director Medicaid Relationship Specialty Start Date End Date Alexa Sepulveda MD [address] [place] [address] Dr [address] [facility] [place] [address] PCP - General Internal Medicine 08/06/18
--- OUTSIDE RECORDS SUMMARY | 2025-04-04 11:52 | XMS_ITS | Clinical Summary ---
Author Organization [facility] Address [address] [place] [phone] Phone Care Team Providers Care Chief Controller Center Name Role Phone Alexa Sepulveda MD Primary Care Provider [phone] Allergies Active Allergy Reactions Criticality Noted Date [...] file Insurance CARE MEDICARE REPLACEMENT [facility] CARE MEDICARE REPLACEMENT [place] [id number] CARE MEDICARE REPLACEMENT CARE MEDICARE REPLACEMENT CARE MEDICARE REPLACEMENT CARE MEDICARE REPLACEMENT [place] [id number] Care Teams Chief Controller Center Relationship Specialty Start Date End Date Alexa Sepulveda MD [address] [place] [address] [place] [phone] PCP - General Internal Medicine 05/27/17 Additional Source Comments The information contained in this document represents components of the legal health record. It is not the complete legal health record.[facility]
--- OUTSIDE RECORDS SUMMARY | 2025-04-04 11:52 | XMS_ITS | Clinical Summary ---
Author Organization [facility] Address [address] [place] [address] Care Team Providers Care Meter And Regulator Shop Supervisor Name Role Phone Alexa Sepulveda MD Primary Care Provider [phone] Social History Tobacco Use Types Packs/Day Years [...] complete this topic RSV Immunization Patients Un maneul 20 months Aged Out No longer eligible b ased on patient's age to complete this topic Varicella Vaccines Aged Out No longer eligible based on patient's age to complete this topic Care Teams Meter And Regulator Shop Supervisor Relationship Specialty Start Date End Date Alexa Sepulveda MD [address] [place] [address] [address] [facility] [place] [address] PCP - General Internal Medicine 08/06/18
== END 2025-04-01 09:22 | disposition home or self-care (01) ==
LOC: HO.LNP 09:21
PROVIDERS: Visit Provider Internal Medicine
DX: Z11.0 Encounter for screening for intestinal infectious diseases (principal)
CPT/HCPCS: 83013

== ENCOUNTER 2025-04-01 11:29 | Outpatient (AMB) | payer OTHER, SELFPAY ==
[2025-04-01 11:31] VITALS: BP 114/62; PULSE 92; RESP 16; TEMP 36.2; O2SAT 98
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
== END 2025-04-01 12:42 | disposition home or self-care (01) ==
LOC: HO.HMCH 11:30
PROVIDERS: PCP Internal Medicine; Visit Provider Internal Medicine
DX: Z01.818 Encounter for other preprocedural examination (principal); K21.9 Gastro-esophageal reflux disease without esophagitis; S46.001A Unspecified injury of muscle(s) and tendon(s) of the rotator cuff of right shoulder, initial encounter; Z72.0 Tobacco use; E78.00 Pure hypercholesterolemia, unspecified

== ENCOUNTER 2025-04-14 09:50 | Outpatient (AMB) | payer OTHER, SELFPAY ==
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
[2025-04-14 10:01] VITALS: BP 133/73; PULSE 81; O2SAT 97; BMI 19.9
--- OUTSIDE RECORDS SUMMARY | 2025-04-14 10:35 | XMS_ITS | Clinical Summary ---
Author Organization [facility] Address [address] [place] [address] Care Team Providers Care Director Of Field Service Name Role Phone Alexa Sepulveda MD Primary Care Provider [phone] Social History Tobacco Use Types Packs/Day Years [...] to complete this topic Care Teams Director Of Field Service Relationship Specialty Start Date End Date Alexa Sepulveda MD [address] [place] [address] [address] [facility] [place] [address] PCP - General Internal Medicine 08/06/18
--- OUTSIDE RECORDS SUMMARY | 2025-04-14 10:35 | XMS_ITS | Clinical Summary ---
Author Organization [facility] Address [address] [place] [address] Care Team Providers Care Round Up Ring Hand Name Role Phone Alexa Sepulveda MD Primary Care Provider [phone] Social History Tobacco Use Types Packs/Day Years [...] age to complete this topic Care Teams Round Up Ring Hand Relationship Specialty Start Date End Date Alexa Sepulveda MD [address] [place] [address] [address] [facility] [place] [address] PCP - General Internal Medicine 08/06/18
== END 2025-04-14 10:43 | disposition home or self-care (01) ==
LOC: HO.HOS 09:55
PROVIDERS: PCP Internal Medicine; Visit Provider Physician Assistant
DX: G56.80 Other specified mononeuropathies of unspecified upper limb (principal); M24.811 Other specific joint derangements of right shoulder, not elsewhere classified
CPT/HCPCS: 99024

== ENCOUNTER → 2025-04-14 09:50 | Outpatient (BNVA) | payer OTHER, SELFPAY | PROVIDERS: PCP Internal Medicine; Visit Provider Physician Assistant | DX: Z01.818 Encounter for other preprocedural examination (principal); M24.811 Other specific joint derangements of right shoulder, not elsewhere classified; G56.81 Other specified mononeuropathies of right upper limb | CPT/HCPCS: 99212 ==

== ENCOUNTER 2025-04-20 06:00 | Day surgery (SDC) | payer OTHER, SELFPAY ==
[2025-04-11 09:35] VITALS: BMI 20.5
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
[2025-04-20 06:20] VITALS: BP 110/71; PULSE 60; RESP 12; TEMP 36.5; O2SAT 99
[2025-04-20] MEDS: Lactated Ringers 1,000 ML 100 ML IVCONT (06:35)
[2025-04-20 06:36] VITALS: BMI 19.1
--- NOTE | 2025-04-20 07:32 | MHC.SHP ---
Pre-Procedural Eval Section A - 24 Hr Update-Section A only Date of Service: 04/20/25 The patient is an INPATIENT: No Changes since office visit: No Cold of Flu in the past 2 weeks, No New Medical Problems, No Changes in Medication and No Patient answered all questions The patient has been examined within 24 hours of the surgical procedure. The History & Physical has been completed within 30 days and I have reviewed it.: Yes Section B - Complete if H&P > 30 days Chief Complaint: Other specific joint derangements of right shoulde Allergies: Allergies Allergy/AdvReac Type Severity Reaction Status Date / Time acetaminophen Allergy Intermediate Gastrointestinal Verified 04/20/25 06:25 Upset gabapentin Allergy Intermediate rectal Verified 04/20/25 06:25 bleeding, upset stomach hydrocodone (From Vicodin) Allergy Intermediate hives Verified 04/20/25 06:25 meloxicam Allergy Intermediate rectal Verified 04/20/25 06:25 bleed omeprazole AdvReac Intermediate stomach Verified 04/20/25 06:25 upset Plan I have reviewed the history and physical and performed a pertinent physical examination on my patient. No changes have occurred unless specified. Time Spent With Patient Time: Total time managing care of this patient today ____ minutes.
[2025-04-20 09:40] VITALS: BP 118/68; PULSE 56; RESP 16; TEMP 36.1; O2SAT 100
[2025-04-20 09:45] VITALS: BP 107/72; PULSE 60; RESP 17; O2SAT 100
--- NOTE | 2025-04-20 09:45 | PM.OP ---
Brief Operative Note Date of Service: 04/20/25 Pre-op diagnosis: Right spinoglenoid cyst Post-op diagnosis: other (Right SLAP tear) Procedure: Posterior SLAP repair with biceps tenodesis Implants: Spangler [employer] Nephew Micro-raptor x 2, Arthrex cieps endobutton with interference screw Surgeon: Deyvi Quinonez MD Anesthesia: GETA and regional Was an Extruding Department Supervisor used for this Procedure?: Yes Extruding Department Supervisor: Dunia Sandoval Estimated blood loss (mL): 10 IV fluids (mL): 1,000 Pathology: none sent Condition: stable Disposition: PACU
[2025-04-20 09:50] VITALS: BP 117/73; PULSE 56; RESP 13; O2SAT 100
[2025-04-20 09:55] VITALS: BP 105/72; PULSE 60; RESP 18; O2SAT 98
[2025-04-20 10:10] VITALS: BP 142/72; PULSE 53; RESP 16; TEMP 36.2; O2SAT 100
--- NOTE | 2025-04-22 07:44 | W.PM.OPN ---
Operative Note Operative Note Date of Service: 04/20/25 Narrative: Date of Service: 04/20/25 Pre-op diagnosis: Right spinoglenoid cyst Post-op diagnosis: other (Right SLAP tear) Procedure: Posterior SLAP repair with biceps tenodesis Implants: Spangler and Nephew Micro-raptor x 2, Arthrex biceps endobutton with interference screw Surgeon: Deyvi Quinonez MD Anesthesia: GETA and regional Was an Drapery Hand used for this Procedure?: Yes Drapery Hand: Dunia Sandoval Estimated blood loss (mL): 10 IV fluids (mL): 1,000 Pathology: none sent Condition: stable Disposition: PACU Procedure in detail: Patient was brought to the operating room and placed the the beach chair position. All bony prominences were well padded and the limb was prepped and draped in standard sterile fashion. A time out was called to identify proper site, proper procedure and proper surgeon. IV antibiotics per weight were administered. I began by making a posterolateral stab incision with a 15 blade. A blunt trochar was placed into the glenohumeral joint and I insufflated the joint with saline and a 30 degree arthroscope was placed. I established an outside- in anterior portal just distal to the biceps tendon. I then began my inspection of the glenohumeral joint. There was a large SLAP tear at the biceps anchor that extended posteriorly to the 9 O:clock position. There were minimal cartilage changes at the inferior glenoid without humeral head changes. There was an intact undersurface RTC.. The subcapularis was intact. I debrided the anterior labrum and performed a biceps tenotomy. I then decompressed the spinoglenoid notch with a probe and then a shaver through the posterior labral tear. Once this was done I debrided the rim of the glenoid with a shaver. I then used a nitinol wire passer through the posterior labrum and the 10 and 11 o'clock position. A luggage handle configured looped suture was then passed through the labrum and a micro-raptor anchor was drilled and then inserted through the posterior portal. The created a solid repair of the posterior labral and posterior aspect of the SLAP tear. The superior and anterior SLAP was stable and the underlying glenoid rim was further debrided down to bleeding bone. Final pictures were then taken and all arthroscopic instrumentation was then removed. I then made an oblique incision at the axillary fold of ~ 3 cm just superior to the pec major tendon. I bluntly dissected toward the humerus and palpated the bicipital groove. A [employer]y was inserted laterally and the fascia over the biceps was swept away and a right angle clamp was used to undermine the biceps tendon and then bring it out through the incision. About 1 cm was removed from the distal tendon and it was then whip stitched with a fiber-wire. A beefpin was then drilled ~ 1 cm proximal to the most distal aspect of the pec major tendon. This was drilled bi-cortically and then the near cortex was reamed with a 7.5 mm reamer. The fiber wire was threaded through the endobutton which was then passed through the far cortex and flipped. The tendon was then shuttled into the medullary canal and tightened. I had excellent tension of the biceps. The 7.0 interference screw was then inserted adjacent to the tendon. I was satisfied with the repair. The wound was irrigated and a layered closure with absorbable suture was performed. The patient was placed in sterie dressings and an abdution sling. He was then extubated and brought to the recovery room in stable condition. there were no known complications.
== END 2025-04-20 10:40 | disposition home or self-care (01) ==
PROVIDERS: PCP Internal Medicine; Visit Provider Orthopaedic Surgery
PROC: (CPT 29805; principal; 2025-04-20 07:30)
DX: S43.431A Superior glenoid labrum lesion of right shoulder, initial encounter (principal); M24.811 Other specific joint derangements of right shoulder, not elsewhere classified; G56.80 Other specified mononeuropathies of unspecified upper limb; M67.411 Ganglion, right shoulder; X58.XXXA Exposure to other specified factors, initial encounter; Y93.9 Activity, unspecified; Y92.9 Unspecified place or not applicable; Y99.9 Unspecified external cause status; E55.9 Vitamin D deficiency, unspecified; E78.00 Pure hypercholesterolemia, unspecified; K21.9 Gastro-esophageal reflux disease without esophagitis; K25.9 Gastric ulcer, unspecified as acute or chronic, without hemorrhage or perforation; R73.02 Impaired glucose tolerance (oral); G90.521 Complex regional pain syndrome I of right lower limb; M25.561 Pain in right knee; M51.16 Intervertebral disc disorders with radiculopathy, lumbar region; M96.1 Postlaminectomy syndrome, not elsewhere classified; G43.909 Migraine, unspecified, not intractable, without status migrainosus; Z87.820 Personal history of traumatic brain injury; Z87.828 Personal history of other (healed) physical injury and trauma; Z18.10 Retained metal fragments, unspecified; F41.9 Anxiety disorder, unspecified; Z87.442 Personal history of urinary calculi; Z79.899 Other long term (current) drug therapy; Z88.5 Allergy status to narcotic agent; Z88.8 Allergy status to other drugs, medicaments and biological substances; F17.210 Nicotine dependence, cigarettes, uncomplicated; Z98.890 Other specified postprocedural states
CPT/HCPCS: 29807; 29828; C1713; J0165; J0665; J0690; J1100; J1885; J2003; J2250; J2405; J2704; J3010

== ENCOUNTER → 2025-04-20 06:00 | Outpatient (BNV) | payer OTHER, SELFPAY | PROVIDERS: PCP Internal Medicine; Visit Provider Orthopaedic Surgery | DX: S43.431A Superior glenoid labrum lesion of right shoulder, initial encounter (principal); M75.21 Bicipital tendinitis, right shoulder | CPT/HCPCS: 29807; 29828 ==

== ENCOUNTER 2025-04-26 09:53 | Outpatient (AMB) | payer OTHER, SELFPAY ==
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
[2025-04-26 10:04] VITALS: BMI 19.8
--- OUTSIDE RECORDS SUMMARY | 2025-04-26 10:40 | XMS_ITS | Clinical Summary ---
Author Organization [facility] Address [address] [place] [address] Care Team Providers Care Ultrasonographer Name Role Phone Alexa Sepulveda MD Primary Care Provider [phone] Social History Tobacco Use Types Packs/Day Years [...] age to complete this topic Care Teams Ultrasonographer Relationship Specialty Start Date End Date Alexa Sepulveda MD [address] [place] [address] [address] [facility] [place] [address] PCP - General Internal Medicine 08/06/18
--- OUTSIDE RECORDS SUMMARY | 2025-04-26 10:40 | XMS_ITS | Clinical Summary ---
Author Organization [facility] Address [address] [place] [address] Care Team Providers Care Range Operator Name Role Phone Alexa Sepulveda MD Primary Care Provider [phone] Social History Tobacco Use Types Packs/Day Years [...] complete this topic RSV Immunization Patients Un amnuel 20 months Aged Out No longer eligible b ased on patient's age to complete this topic Varicella Vaccines Aged Out No longer eligible based on patient's age to complete this topic Care Teams Range Operator Relationship Specialty Start Date End Date Alexa Sepulveda MD [address] [place] [address] [address] [facility] [place] [address] PCP - General Internal Medicine 08/06/18
--- OUTSIDE RECORDS SUMMARY | 2025-04-26 10:40 | XMS_ITS | Clinical Summary ---
Author Organization [facility] Address [address] [place] [id number] Phone Care Team Providers Care Recreation Program Specialist Name Role Phone Alexa Sepulveda MD Primary Care Provider [phone] Allergies Active Allergy Reactions Criticality Noted Date [...] file Insurance CARE MEDICARE REPLACEMENT [place] [facility] CARE MEDICARE REPLACEMENT [place] [id number] CARE MEDICARE REPLACEMENT CARE MEDICARE REPLACEMENT CARE MEDICARE REPLACEMENT CARE MEDICARE [place]PLACEMENT [place] [id number] Care Teams Recreation Program Specialist Relationship Specialty Start Date End Date Alexa Sepulveda MD [address] [place] [address] [place] [phone] PCP - General Internal Medicine 05/27/17 Additional Source Comments The information contained in this document represents components of the legal health record. It is not the complete legal health record.[facility]
== END 2025-04-26 10:28 | disposition home or self-care (01) ==
LOC: HO.HOS 09:54
PROVIDERS: PCP Internal Medicine; Visit Provider Physician Assistant
DX: M75.21 Bicipital tendinitis, right shoulder (principal); S46.001A Unspecified injury of muscle(s) and tendon(s) of the rotator cuff of right shoulder, initial encounter; S43.431A Superior glenoid labrum lesion of right shoulder, initial encounter
CPT/HCPCS: 99024

== ENCOUNTER → 2025-04-26 09:53 | Outpatient (BNVA) | payer OTHER, SELFPAY | PROVIDERS: PCP Internal Medicine; Visit Provider Physician Assistant | DX: Z47.89 Encounter for other orthopedic aftercare (principal) | CPT/HCPCS: 99212 ==

== ENCOUNTER 2025-05-06 12:46 | Outpatient (AMB) | payer OTHER, SELFPAY ==
[2025-05-06 12:50] VITALS: BP 112/62; PULSE 71; O2SAT 98; BMI 20.1
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
--- OUTSIDE RECORDS SUMMARY | 2025-05-06 12:58 | XMS_ITS | Clinical Summary ---
Author Organization [facility] Address [address] [place] [address] Care Team Providers Care Concession Stand Attendant Name Role Phone Alexa Sepulveda MD Primary Care Provider [phone] Social History Tobacco Use Types Packs/Day Years [...] age to complete this topic Care Teams Concession Stand Attendant Relationship Specialty Start Date End Date Alexa Sepulveda MD [address] [place] [address] [address] [facility] [place] [address] PCP - General Internal Medicine 08/06/18
--- OUTSIDE RECORDS SUMMARY | 2025-05-06 12:58 | XMS_ITS | Clinical Summary ---
Author Organization [facility] Address [address] [place] [id number] Phone Care Team Providers Care [employer] Name Role Phone Alexa Sepulveda MD Primary Care Provider [phone] Allergies Active Allergy Reactions Criticality Noted Date [...] FOBT 2019 SIGMOIDOSCOPY 2019 VIRTUAL COLONOSCOPY 2019 ZOSTER VACCINES (1 of 2) 2024 INFLUENZA VACCINE (#1) 2025 COVID-19 VACCINE (1 - 2023-2 5 season) 2025 Adult Td,Tdap Booster 03/05/2028 03/05/2018 HEPATITIS A [...] file Insurance CARE MEDICARE REPLACEMENT [employer] [id number] [place] [address] [address] [place] [address] [address] ONE CARE MEDICARE REPLACEMENT CARE MEDICARE [place] [place] [address] CARE MEDICARE REPLACEMENT CARE MEDICARE REPLACEMENT CARE MEDICARE REPLACEMENT ONE [employer] MEDICARE REPLACEMENT Care Teams [employer] Relationship Specialty Start Date End Date Alexa Sepulveda MD [address] [place] [address] Drive [address] [place] [address] PCP - General Internal Medicine 05/27/17 Additional Source Comments The information contained in this document represents components of the legal health record. It is not the complete legal health record.[facility]
--- OUTSIDE RECORDS SUMMARY | 2025-05-06 12:58 | XMS_ITS | Clinical Summary ---
Author Organization [facility] Address [address] [place] [address] Care Team Providers Care Chiseler Head Name Role Phone Alexa Sepulveda MD Primary [...] 08/03/2022 Social Influencers of Health Screening 08/03/2022 Pneumococcal Vaccine: 50+ Ye ars (1 of 1 - PCV) 2024 Zoster Vaccines (1 of 2) 2024 Depression Screening 09/01/2024 COVID-19 Vaccine (1 - 2023-2 5 season) 2025 Influenza Vaccine (#1) 2025 HIB Vaccines Aged [...] age to complete this topic Care Teams Chiseler Head Relationship Specialty Start Date End Date Alexa Sepulveda MD [address] [place] [address] [address] [facility] [place] [address] PCP - General Internal Medicine 08/06/18
== END 2025-05-06 15:02 | disposition home or self-care (01) ==
LOC: HO.HMCH 12:46
PROVIDERS: PCP Internal Medicine; Visit Provider Internal Medicine
DX: Z00.00 Encounter for general adult medical examination without abnormal findings (principal); Z72.0 Tobacco use; S43.431A Superior glenoid labrum lesion of right shoulder, initial encounter; K21.9 Gastro-esophageal reflux disease without esophagitis; R73.02 Impaired glucose tolerance (oral); E78.00 Pure hypercholesterolemia, unspecified; R35.0 Frequency of micturition; H53.9 Unspecified visual disturbance

== ENCOUNTER → 2025-05-06 12:46 | Outpatient (BNVA) | payer OTHER, SELFPAY | PROVIDERS: PCP Internal Medicine; Visit Provider Internal Medicine | DX: Z00.00 Encounter for general adult medical examination without abnormal findings (principal); K21.9 Gastro-esophageal reflux disease without esophagitis; R73.02 Impaired glucose tolerance (oral); E78.00 Pure hypercholesterolemia, unspecified; R35.0 Frequency of micturition; H53.9 Unspecified visual disturbance; R30.0 Dysuria; S43.431A Superior glenoid labrum lesion of right shoulder, initial encounter; X58.XXXA Exposure to other specified factors, initial encounter; Y93.9 Activity, unspecified; Y92.9 Unspecified place or not applicable; Y99.9 Unspecified external cause status | CPT/HCPCS: 96127; 99396 ==

== ENCOUNTER 2025-05-23 10:58 | Outpatient (AMB) | payer OTHER, SELFPAY ==
[2025-05-23 11:02] VITALS: BMI 20.1
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
--- OUTSIDE RECORDS SUMMARY | 2025-05-23 13:37 | XMS_ITS | Clinical Summary ---
Author Organization [facility] Address [address] [place] [address] Phone Care Team Providers Care Wire Drawer Name Role Phone Alexa Sepulveda MD Primary Care Provider [phone] Allergies Active Allergy Reactions Criticality Noted Date [...] file Insurance C[employer] MEDICARE REPLACEMENT [employer] [id number] [place] [address] [address] [place] [address] ONE CARE MEDICARE REPLACEMENT CARE MEDICARE REPLAC[place] [address] CARE MEDICARE REPLACEMENT CARE MEDICARE REPLACEMENT CARE MEDICARE REPLACEMENT ONE CARE MEDICARE REPLACEMENT Care Teams Wire Drawer Relationship Specialty Start Date End Date Alexa Sepulveda MD [address] [place] [address] Drive [address] [place] [address] PCP - General Internal Medicine 05/27/17 Additional Source Comments The information contained in this document represents components of the legal health record. It is not the complete legal health record.[facility]
--- OUTSIDE RECORDS SUMMARY | 2025-05-23 13:37 | XMS_ITS | Clinical Summary ---
Author Organization [facility] Address [address] [place] [address] Care Team Providers Care Technical Proposal Writer Name Role Phone Alexa Sepulveda MD Primary Care Provider [phone] Social History Tobacco Use Types Packs/Day Years [...] age to complete this topic Care Teams Technical Proposal Writer Relationship Specialty Start Date End Date Alexa Sepulveda MD [address] [place] [address] [address] Prit[address] [facility] [place] [address] PCP - General Internal Medicine 08/06/18
--- OUTSIDE RECORDS SUMMARY | 2025-05-23 13:37 | XMS_ITS | Clinical Summary ---
Author Organization [facility] Address [address] [place] [address] Care Team Providers Care Potato Picker Name Role Phone Alexa Sepulveda MD Primary Care Provider [phone] Social History Tobacco Use Types Packs/Day Years [...] 5 season) 2025 Influenza Vaccine (#1) 2025 RSV Immunization Adult Patie nts (1 - 1-dose 75+ series) 2049 HIB Vaccines Aged Out No longer eligi [...] age to complete this topic Care Teams Potato Picker Relationship Specialty Start Date End Date Alexa Sepulveda MD [address] [place] [address] [address] [facility] [place] [address] PCP - General Internal Medicine 08/06/18
== END 2025-05-23 11:20 | disposition home or self-care (01) ==
LOC: HO.HOS 10:59
PROVIDERS: PCP Internal Medicine; Visit Provider Orthopaedic Surgery
DX: S43.431A Superior glenoid labrum lesion of right shoulder, initial encounter (principal)
CPT/HCPCS: 99024

== ENCOUNTER → 2025-05-23 10:58 | Outpatient (BNVA) | payer OTHER, SELFPAY | PROVIDERS: PCP Internal Medicine; Visit Provider Orthopaedic Surgery | DX: M25.511 Pain in right shoulder (principal); Z98.890 Other specified postprocedural states; S43.431D Superior glenoid labrum lesion of right shoulder, subsequent encounter | CPT/HCPCS: 99212 ==

== ENCOUNTER 2025-06-01 14:31 | Outpatient (AMB) | payer OTHER, SELFPAY ==
[2025-06-01 14:41] VITALS: BP 100/52; PULSE 66; TEMP 36.8; O2SAT 98; BMI 20.5
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
--- OUTSIDE RECORDS SUMMARY | 2025-06-01 15:40 | XMS_ITS | Clinical Summary ---
Author Organization [facility] Address [address] [place] [address] Care Team Providers Care Wharf Tender Head Name Role Phone Alexa Sepulveda MD Primary Care Provider [phone] Social History Tobacco Use Types Packs/Day Years [...] age to complete this topic Care Teams Wharf Tender Head Relationship Specialty Start Date End Date Alexa Sepulveda MD [address] [place] [address] [address] [facility] [place] [address] PCP - General Internal Medicine 08/06/18
--- OUTSIDE RECORDS SUMMARY | 2025-06-01 15:40 | XMS_ITS | Clinical Summary ---
Author Organization [facility] Address [address] [place] [address] Care Team Providers Care Supervisor Boat Outfitting Name Role Phone Alexa Sepulveda MD Primary Care Provider [phone] Social History Tobacco Use Types Packs/Day Years Used Date Smoking Tobacco: Never Assessed Sex and Gender Information Value Date Recorded Sex Assigned at Not on file Legal Sex Male 6:14 PM EST Gender Identity Not on file Sexual Orientation Not on file Plan of Treatment Health Maintenance Due Date Last Done Comments Colorectal Cancer Screening: Colonoscopy 1974 DTaP,Tdap,and Td Vaccines (1 - Tdap) 1993 Hepatitis B Vaccines (1 of 3 - 19+ 3-dose series) 1993 Cholesterol Screening (Lipid Panel) 08/03/2022 HIV Screening 08/03/2022 Hepatitis C Screening [...] age to complete this topic Care Teams Supervisor Boat Outfitting Relationship Specialty Start Date End Date Alexa Sepulveda MD [address] [place] [address] [address] [facility] [place] [address] PCP - General Internal Medicine 08/06/18
--- OUTSIDE RECORDS SUMMARY | 2025-06-01 15:40 | XMS_ITS | Clinical Summary ---
Author Organization [facility] Address [address] [place] [address] Phone Care Team Providers Care Manager Consumer Name Role Phone Alexa Sepulveda MD Primary Care Provider [phone] Allergies Active Allergy Reactions Criticality Noted Date [...] file Insurance CARE MEDICARE REPLACEMENT [employer] [id number] [place] [address] [address] [place] [place] [address] [place] [address] ONE CARE MEDICARE REPLACEMENT CARE MEDICARE REPLACEMENT [place] [address] CARE MEDICARE REPLACEMENT CARE MEDICARE REPLACEMENT CARE MEDICARE REPLACEMENT ONE CARE MEDICARE REPLACEMENT Care Teams Manager Consumer Relationship Specialty Start Date End Date Alexa Sepulveda MD [address] [place] [address] Drive [address] [place] [address] PCP - General Internal Medicine 05/27/17 Additional Source Comments The information contained in this document represents components of the legal health record. It is not the complete legal health record.[facility]
== END 2025-06-01 15:34 | disposition home or self-care (01) ==
PROVIDERS: PCP Internal Medicine; Visit Provider Physician Assistant Medical
DX: M54.2 Cervicalgia (principal)

== ENCOUNTER → 2025-06-01 14:31 | Outpatient (BNVA) | payer OTHER, SELFPAY | PROVIDERS: PCP Internal Medicine; Visit Provider Physician Assistant Medical | DX: M54.2 Cervicalgia (principal) | CPT/HCPCS: 99212 ==

== ENCOUNTER 2025-06-20 10:03 | Outpatient (AMB) | payer OTHER, SELFPAY ==
[2025-06-20 10:12] VITALS: BMI 20.5
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
--- OUTSIDE RECORDS SUMMARY | 2025-06-20 11:30 | XMS_ITS | Clinical Summary ---
Author Organization [facility] Address [address] [place] [address] Care Team Providers Care Manager Brand Name Role Phone Alexa Sepulveda MD Primary [...] age to complete this topic Care Teams Manager Brand Relationship Specialty Start Date End Date Alexa Sepulveda MD [address] [place] [address] [address]rit[address] [facility] [place] [address] PCP - General Internal Medicine 08/06/18
--- OUTSIDE RECORDS SUMMARY | 2025-06-20 11:30 | XMS_ITS | Clinical Summary ---
Author Organization [facility] Address [address] [place] [address] Phone Care Team Providers Care Motor Coach Supervisor Name Role Phone Alexa Sepulveda MD Primary Care Provider [phone] Allergies Active Allergy Reactions Criticality Noted Date [...] VACCINE (#1) 2025 COVID-19 VACCINE (1 - 2024-2 6 season) 2025 Adult Td,Tdap Booster 03/05/2028 03/05/2018 RSV VACCINE (1 - 1-dose 75+ series) 2049 HEPATITIS A VACCINES Aged Out No long [...] file Insurance CARE MEDICARE REPLACEMENT [employer] [id number] [place] [address] ONE CARE MEDICARE [place] [place] [address] CARE MEDICARE REPLACEMENT CARE [place]IC[place] [address] [place] [address] CARE MEDICARE REPLACEMENT CARE MEDICARE REPLACEMENT CARE MEDICARE [place] [place] [address] [employer] CARE MEDICARE REPLACEMENT [employer] [id number] Care Teams Motor Coach Supervisor Relationship Specialty Start Date End Date Alexa Sepulveda MD [address] [place] [address] [place] [phone] PCP - General Internal Medicine 05/27/17 Additional Source Comments The information contained in this document represents components of the legal health record. It is not the complete legal health record.[facility]
--- OUTSIDE RECORDS SUMMARY | 2025-06-20 11:30 | XMS_ITS | Clinical Summary ---
Author Organization [facility] Address [address] [place] [address] Care Team Providers Care Hvac Controls Technician Name Role Phone Alexa Sepulveda MD Primary Care Provider [phone] Social History Tobacco Use Types Packs/Day Years [...] age to complete this topic Care Teams Hvac Controls Technician Relationship Specialty Start Date End Date Alexa Sepulveda MD [address] [place] [address] [address] [facility] [place] [address] PCP - General Internal Medicine 08/06/18
== END 2025-06-20 10:34 | disposition home or self-care (01) ==
LOC: HO.HOS 10:03
PROVIDERS: PCP Internal Medicine; Visit Provider Orthopaedic Surgery
DX: S43.431A Superior glenoid labrum lesion of right shoulder, initial encounter (principal)
CPT/HCPCS: 99024

== ENCOUNTER → 2025-06-20 10:03 | Outpatient (BNVA) | payer OTHER, SELFPAY | PROVIDERS: PCP Internal Medicine; Visit Provider Orthopaedic Surgery | DX: S43.431A Superior glenoid labrum lesion of right shoulder, initial encounter (principal); X58.XXXA Exposure to other specified factors, initial encounter; M54.2 Cervicalgia; R20.2 Paresthesia of skin | CPT/HCPCS: 99212 ==

== ENCOUNTER 2025-06-28 14:54 | Outpatient (REF) | payer OTHER, SELFPAY ==
--- NOTE | ~2025-06-28 | US_ITS ---
EXAMINATION: US PELVIS LIMITED (BLADDER) CLINICAL INFORMATION: Frequency of micturition. COMPARISON: Renal ultrasound 05/14/2024. Bladder ultrasound 11/13/2022 TECHNIQUE: Real-time imaging of the bladder. FINDINGS: BLADDER: Well distended.. Bilateral ureteral jets are demonstrated. Prevoid bladder volume is 377 mL. Postvoid bladder volume is 18.4 mL. There is debris within the bladder. Prostate volume 34.5 mL. US/US bladder IMPRESSION: 1. There is debris within the bladder. Correlate with urinalysis. 2. Postvoid bladder residual of 18.4 mL. 3. Prostate volume 34.5 mL. Electronically signed by: Duong Johnson MD 06/28/2025 05:00 PM EDT
--- OUTSIDE RECORDS SUMMARY | 2025-06-28 19:19 | XMS_ITS | Clinical Summary ---
Author Organization [facility] Address [address] [place] [address] Care Team Providers Care Materials Planner/Production Planner Name Role Phone Alexa Sepulveda MD Primary Care Provider [phone] Social History Tobacco Use Types Packs/Day Years [...] age to complete this topic Care Teams Materials Planner/Production Planner Relationship Specialty Start Date End Date Alexa Sepulveda MD [address] [place] [address] [address] [facility] [place] [address] PCP - General Internal Medicine 08/06/18
--- OUTSIDE RECORDS SUMMARY | 2025-06-28 19:19 | XMS_ITS | Clinical Summary ---
Author Organization [facility] Address [address] [place] [address] Care Team Providers Care Nurse Executive Name Role Phone Alexa Sepulveda MD Primary Care Provider [phone] Social History Tobacco Use Types Packs/Day Years [...] age to complete this topic Care Teams Nurse Executive Relationship Specialty Start Date End Date Alexa Sepulveda MD [address] [place] [address] [address]rit[address] [facility] [place] [address] PCP - General Internal Medicine 08/06/18
--- OUTSIDE RECORDS SUMMARY | 2025-06-28 19:19 | XMS_ITS | Clinical Summary ---
Author Organization [facility] Address [address] [place] [address] Phone Care Team Providers Care Beading Installer Name Role Phone Alexa Sepulveda MD Primary Care Provider [phone] Allergies Active Allergy Reactions Criticality Noted Date [...] file Insurance CARE MEDICARE REPLACEMENT [employer] [id number] [place] [address] ONE CARE MEDICARE [place] [address] CARE MEDICARE REPLACEMENT CARE MEDICARE [place] [address] [address] CARE MEDICARE REPLACEMENT CARE MEDICARE REPLACEMENT CARE MEDICARE [place] [address] [place] [address] ONE CARE MEDICARE REPLACEMENT [employer] [id number] Care Teams Beading Installer Relationship Specialty Start Date End Date Alexa Sepulveda MD [address] [place] [address] [place] [phone] PCP - General Internal Medicine 05/27/17 Additional Source Comments The information contained in this document represents components of the legal health record. It is not the complete legal health record.[facility]
== END 2025-06-28 14:55 | disposition home or self-care (01) ==
LOC: HO.HMGCX 14:54
PROVIDERS: PCP Internal Medicine; Visit Provider Internal Medicine
DX: R35.0 Frequency of micturition (principal)
CPT/HCPCS: 76857

== ENCOUNTER → 2025-06-28 15:06 | Outpatient (BNV) | payer OTHER, SELFPAY | PROVIDERS: PCP Internal Medicine; Visit Provider Radiology Diagnostic Ultrasound | DX: R35.0 Frequency of micturition (principal) | CPT/HCPCS: 76857 ==

== ENCOUNTER 2025-08-18 12:44 | Outpatient (AMB) | payer OTHER, SELFPAY ==
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
--- OUTSIDE RECORDS SUMMARY | 2025-08-18 16:35 | XMS_ITS | Clinical Summary ---
Author Organization [facility] [[email or web address]] Address [address] [place] [address] Care Team Providers Care Pie Dough Roller Name Role Phone Alexa Sepulveda MD Primary Care Provider [phone] Social History Tobacco Use Types Packs/Day Years [...] Depression Screening 09/01/2024 COVID-19 Vaccine (1 - 2024-2 6 season) 2025 Influenza Vaccine (#1) 2025 RSV [...] age to complete this topic Care Teams Pie Dough Roller Relationship Specialty Start Date End Date Alexa Sepulveda MD [address] [place] [address] [address] [facility] [place] [address] PCP - General Internal Medicine 08/06/18
--- OUTSIDE RECORDS SUMMARY | 2025-08-18 16:35 | XMS_ITS | Clinical Summary ---
Author Organization [facility] Address [address] [place] [id number] Phone Care Team Providers Care Colleter Name Role Phone Alexa Sepulveda MD Primary Care Provider [phone] Allergies Active Allergy Reactions Criticality Noted Date [...] file Insurance [employer] MED[employer] [id number] [place] [address] [employer] [place] [address] [place] [address] CARE MEDICARE REPLACEMENT CARE MED[employer] [place] [address] CARE MEDICARE REPLACEMENT CARE MEDICARE REPLACEMENT CARE MEDICARE RE[place]AC[place] [address] [employer] [id number] Care Teams Colleter Relationship Specialty Start Date End Date Alexa Sepulveda MD [address] [place] [address] [place] [id number] PCP - General Internal Medicine 05/27/17 Additional Source Comments The information contained in this document represents components of the legal health record. It is not the complete legal health record.[facility]
--- OUTSIDE RECORDS SUMMARY | 2025-08-18 16:35 | XMS_ITS | Clinical Summary ---
Author Organization [facility] Prior to 01/29/[address] [place] [id number] Care Team Providers Care Maternity Floor Supervisor Name Role Phone Alexa Sepulveda MD Primary Care Provider [phone] Social History Tobacco Use Types Packs/Day Years [...] age to complete this topic Care Teams Maternity Floor Supervisor Relationship Specialty Start Date End Date Alexa Sepulveda MD [address] [place] [address] [address] [facility] [place] [address] PCP - General Internal Medicine 08/06/18
== END 2025-08-18 13:31 | disposition home or self-care (01) ==
LOC: HO.HOS 12:45
PROVIDERS: PCP Internal Medicine; Visit Provider Orthopaedic Surgery
DX: S43.431A Superior glenoid labrum lesion of right shoulder, initial encounter (principal)
CPT/HCPCS: 99213

== ENCOUNTER → 2025-08-18 12:44 | Outpatient (BNVA) | payer OTHER, SELFPAY | PROVIDERS: PCP Internal Medicine; Visit Provider Orthopaedic Surgery | DX: S43.431A Superior glenoid labrum lesion of right shoulder, initial encounter (principal); M54.2 Cervicalgia; Z98.890 Other specified postprocedural states; F17.210 Nicotine dependence, cigarettes, uncomplicated | CPT/HCPCS: 99212 ==